=== PATIENT | female | born 1960 | race Caucasian/White ===

== ENCOUNTER 2017-01-29 18:45 | Inpatient (IN) | payer BC ==
[~2017-01-29] VITALS: Ht 162.6 cm; Wt 59.0 kg
[~2017-01-29 18:45] MED LIST: ALBU1AER9 INH; BACL10TA PO; CLB/200 PO; CYM60 PO; DSY/150 PO; IMT100 PO; LAMO200T38 PO; LMC25 PO; MGRIN; PRVC/20 PO; SYN75 PO
[2017-01-29 20:25] VITALS: BP 127/85; PULSE 82; TEMP 37.3; Ht 162.6 cm; Wt 59.0 kg
[2017-01-29] MEDS ORDERED: NURSING VERBAL MED ORDER ONE (21:00)
[2017-01-29] MEDS ORDERED: MoRPHine SULFATE 2 MG/ML CARP ONE (21:06)
[2017-01-29] MEDS ORDERED: TRAZODONE HCL 100 MG TAB PO ONE (21:20)
[2017-01-29] MEDS ORDERED: ALBUTEROL HFA 8 GM INHALER INH PRN (21:30)
[2017-01-29] MEDS ORDERED: LACTATED RINGER'S 1000ML 1,000 ML IV SCH (21:30)
[2017-01-29] MEDS ORDERED: PNEUMOCOCCAL ADMINISTRATION CHARGE ONE (21:45)
[2017-01-29] MEDS ORDERED: PNEUMOCOCCAL POLYSACCHARIDES 25 MCG/0.5 ML VIAL/SYR IM. ONE (21:45)
[2017-01-29] MEDS ORDERED: MoRPHine SULFATE 2 MG/ML CARP IV PRN (21:45)
[2017-01-29] MEDS ORDERED: ONDANSETRON INJ 2 MG/ML 2 ML VIAL IV PRN (21:45)
[2017-01-29] MEDS ORDERED: SODIUM CHLORIDE 0.9% 1000ML 1,000 ML IV SCH (21:45)
[2017-01-29] MEDS ORDERED: OXYCODONE/ACETAMINOPHEN 5-325 TAB PO PRN (21:45)
[2017-01-29] MEDS ORDERED: INFLUENZA ADMINISTRATION CHARGE ONE (22:00)
[2017-01-29] MEDS ORDERED: INFLUENZA VIRUS QUAD VACCINE 0.5 ML SYR IM. ONE (22:00)
[2017-01-29] MEDS: SODIUM CHLORIDE 0.9% 1000ML 1,000 ML IV SCH (22:16)
[2017-01-29] MEDS: CEFTRIAXONE SOD INJ 1 GM in DEXTROSE 5% ADD-VANTAGE 50ML 50 ML IV SCH (22:17)
--- NOTE | 2017-01-29 22:23 | Medical Consult ---
Consultation Date of Consultation: Jan 29, 2017. Attending Physician: Jose Pan D.O. Reason for Consultation: Medical Management History of Present Illness Mrs Rosario is a 56 year old female who presents as a direct admission under Dr Pan for left hand cellulitis following a cat bite 3 days previously. She initially went to urgent care and had an XR - original interpretation of a fracture but then later told it was not fractured. She was given TDaP. She was prescribed doxycycline and took her first dose on Tuesday morning. However the swelling, pain and erythema became worse throughout the day and she presented to [facility] in [place]. No labs or imaging was taken. Her case was discussed with Dr Pan who accepted the patient for transfer. Past Medical/Surgical History Medical Problems: (1) Depression Status: Chronic (2) Epilepsy Unspec W/O Mention Intractable Epilepsy Status: Chronic (3) Hypothyroidism Nos Status: Chronic (4) Migraine Status: Chronic (5) Posttraumatic Stress Disorder Status: Chronic (6) Urolithiasis Status: Chronic Social History Smoking Status: Never Smoker Drug Use: none Marital Status: Housing Status: lives with significant other Occupation Status: employed Allergies Coded Allergies: Penicillins (Verified Allergy, Mild, 06/14/11) Carbamazepine (Unverified Allergy, Unknown, rash, 01/21/17) Gabapentin (Verified Allergy, Unknown, UNKNOWN, 06/14/11) Oxcarbazepine (Unverified Adverse Reaction, Unknown, cognitive side effects, 01/21/17) Home Medications Reported Home Medications Medications Dose Route/Sig Max Daily Dose Days Date Category Dose Instructions CeleBREX (Celecoxib) 200 Mg Cap 1 Cap PO DAILY 01/21/17 Reported Migranal (Dihydroergotamine Mesylate) 4 Mg/Ml Murray PRN 01/21/17 Reported Proair Hfa (Albuterol Sulfate) 108 Mcg/ Aer 2 Puffs INH Q4H PRN 08/16/14 Reported Synthroid (Levothyroxine Sodium) 75 Mcg Tab 75 Mcg PO DAILY 08/16/14 Reported Pravastatin Sodium (Pravastatin Sod) 20 Mg Tab 20 Mg PO HS 08/16/14 Reported Lioresal (Baclofen) 10 Mg Tab 20 Mg PO HS 08/16/14 Reported Trazodone HCl 150 Mg Tab 150 Mg PO HS 08/16/14 Reported Lamictal (Lamotrigine) 200 Mg Tab 200 Mg PO BID 08/16/14 Reported TAKE TWO 200 MG TABLETS ALONG WITH ONE 25 MG TABLET TO EQUAL 250 MG DOSE TWICE DAILY. Lamotrigine 25 Mg Tab 50 Mg PO BID 08/16/14 Reported TAKE TWO 25 MG TABLETS ALONG WITH ONE 200 MG TABLET TO EQUAL 250 MG DOSE TWICE DAILY. Duloxetine HCl 60 Mg Cap 120 Mg PO DAILY 08/16/14 Reported Imitrex (Sumatriptan Succinate) 100 Mg Tab 100 Mg PO UD PRN 08/16/14 Reported TAKE ONE TABLET AT ONSET OF MIGRAINE HEADACHE, MAY REPEAT IN 2 HOURS IF NEEDED. Current Inpatient Medications Current Inpatient Medications Medications (Trade) Dose Ordered Sig/Florin Route Start Time Stop Time Status Last Admin Dose Admin Miscellaneous Information (Nursing Verbal Med Order) 1 ea ONE ONCE N/A 01/29/17 21:00 01/29/17 21:01 UNV Pneumococcal Polysaccharide Vaccine (Pneumovax-23 Inj) 25 mcg ONCE ONCE IM. 01/29/17 21:45 01/29/17 21:46 UNV Review of Systems All other systems reviewed and otherwise negative Constitutional: No fever, No chills Respiratory: No shortness of breath Cardiovascular: No chest pain Abdomen: No pain, No nausea, No vomiting, No diarrhea, No constipation Musculoskeletal: + joint pain Physical Exam Date Time Temp Pulse Resp B/P (MAP) Pulse Ox O2 Delivery O2 Flow Rate FiO2 01/29/17 20:25 37.3 82 16 127/85 Room Air General Appearance: WD/WN, + mild distress (from pain in her hand) Head: normocephalic, atraumatic Eyes: normal inspection, EOMI Neck: supple, no JVD, trachea midline Respiratory/Chest: chest non-tender, lungs clear, normal breath sounds, no respiratory distress, no accessory muscle use Cardiovascular: regular rate, rhythm, no murmur, normal peripheral pulses Abdomen/GI: normal bowel sounds, non tender, soft Extremities/Musculoskelatal: no calf tenderness, normal capillary refill, no pedal edema, + pertinent finding (thumb in fixed flexion with small (<5 degrees ) flexion and extension MCPJ and IPJ possible but limited from pain and swelling ) 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 - under orthopedics, will defer imaging to Dr Pan - CBC, BMP, Blood cultures - Start ceftriaxone and metronidazole IV as patient allergic to penicillin therefore unable to give Unasyn but tolerated Ancef given @ [facility] - Pain control - acetaminophen 650mg Q4HWA, oxycodone 5mg Q4H PRN and morphine 2mg Q2H PRN - NPO after midnight with IVF PTSD/Depression - Continue lamictal, cymbalta, trazodone VTE Prophylaxis - defer to primary ortho team Code Resident Physician Supervision Note: Pt seen/evaluated independently. I discussed the case with the resident and agree with the findings and plan as documented in the note. Any exceptions or clarifications are listed here: 56 y/o F Hx Depression - suffered a cat bite from her own pet at the interphalangeal joint of the L thumb - developed marked pain, swelling, decreased mobility. Pt admitted by orthopedics - we are asked to consult for medical management AAO x 3 S1,2 R CTAB NT, ND No CCE Swelling, erythema and pain of L thumb extending around base of thumb P: Placed on Ceftriaxone and Flagyl as she is Russell allergic Continue depression meds as prescribed Pt ids pending ortho evaluation at time of admission - case discussed with ortho Documented By: Angus Isaacs - Full Disposition - on med/durg Additional Copies To Jaciel Robins M.D.
[2017-01-29 22:37] LABS: BASO % 0.1 %; BASO ABS # 0.01 K/uL (0-0.2); COMPLETE YES; EOS % 1.3 %; HEMATOCRIT 39.7 % (37-47); IG% 0.1 %; LYMPH % 16.8 %; LYMPH ABS # 1.14 K/uL (1.2-3.4); MEAN CELL VOLUME 98.5 fL (80-100); MEAN CORPUSCULAR HGB CONC 31.5 g/dl (32-36); MEAN PLATELET VOLUME 9.8 fL (7.4-10.4); MONO % 9.4 %; NEUT % 72.3 %; PLATELET COUNT 182 K/uL (130-400); RED BLOOD COUNT 4.03 M/uL (4.2-5.4); WHITE BLOOD COUNT 6.78 K/uL (4.8-10.8)
[2017-01-29 22:52] VITALS: BP 110/71; PULSE 77; TEMP 36.8; O2SAT 96
[2017-01-29 22:55] LABS: BUN/CREATININE RATIO 15.6 (10-20); CREATININE 0.61 mg/dl (0.60-1.20); POTASSIUM 3.9 mmol/L (3.5-5.1)
[2017-01-29] MEDS: METRONIDAZOLE / NSS 500 MG in PREMIXED NSS 100 ML IV SCH (23:07)
[2017-01-30] VITALS (9 sets, daily range): BP systolic 92–117; BP diastolic 54–73; PULSE 73–93; TEMP 36.5–36.9; O2SAT 92–99
[2017-01-30] MEDS: MoRPHine SULFATE 2 MG/ML CARP IV PRN ×3 (00:18→15:29)
[2017-01-30] MEDS ORDERED: DAPTOMYCIN CONSULT ACTIVE PRN ×2 (01:45)
[2017-01-30] MEDS: DAPTOmycin IV 250 MG in SODIUM CHLORIDE 0.9% 50ML 50 ML IV SCH (02:14)
[2017-01-30] MEDS: DULOXETINE HCL 60 MG CAP PO SCH (05:55)
[2017-01-30] MEDS: LEVOTHYROXINE 75 MCG TAB PO SCH (05:55)
[2017-01-30] MEDS: METRONIDAZOLE / NSS 500 MG in PREMIXED NSS 100 ML IV SCH ×3 (06:05→21:39)
[2017-01-30] MEDS: ACETAMINOPHEN 325 MG TAB PO SCH ×4 (07:52→20:25)
[2017-01-30] MEDS: SODIUM CHLORIDE 0.9% 1000ML 1,000 ML IV SCH ×2 (07:54→20:22)
[2017-01-30] MEDS ORDERED: DOCUSATE SODIUM 100 MG CAP PO SCH (09:00)
[2017-01-30] MEDS ORDERED: PANTOprazole SOD 40 MG TAB PO SCH (09:00)
[2017-01-30] MEDS: DOCUSATE SODIUM 100 MG CAP PO SCH ×2 (09:09→20:25)
[2017-01-30] MEDS: PANTOprazole SOD 40 MG TAB PO SCH (09:10)
--- NOTE | 2017-01-30 09:41 | Progress Note ---
Progress Note Date of Service Jan 30, 2017. Progress Note ID Consult Dictated #[id number] A/P: 1. Cat bite cellulitis -Continue abx -For I&D later today, please send OR cultures -will follow, thank you
--- NOTE | 2017-01-30 10:10 | Hospitalist Progress Note ---
Hospitalist Progress Note Date of Service Jan 30, 2017. Subjective Pt evaluation today including: conversation w/ patient Pt still with pain and swelling in left thumb, awaiting OR I&D today. Denies fevers/chills, no CP or SOB. SHe has no h/o cardiac issues. She can easily walk up and down a flight of stairs without any CP or SOB. Has a h/o pseudoseizures associated with her PTSD, takes Lamictal for depression /mood stabilizer All Other Systems: Reviewed and Negative Objective Vital Signs Date Time Temp Pulse Resp B/P (MAP) Pulse Ox O2 Delivery O2 Flow Rate FiO2 01/30/17 07:45 95 Room Air 01/30/17 07:06 36.8 78 16 92/60 (71) 95 Room Air 01/30/17 00:10 Room Air 01/29/17 22:52 36.8 77 17 110/71 (84) 96 Room Air 01/29/17 22:46 Room Air 01/29/17 20:25 37.3 82 16 127/85 Room Air Physical Exam General Appearance: WD/WN, no apparent distress Eyes: normal inspection, PERRL, sclerae normal ENT: hearing grossly normal, pharynx normal Neck: no adenopathy, no carotid bruits, trachea midline Respiratory/Chest: lungs clear, normal breath sounds, no respiratory distress, no accessory muscle use Cardiovascular: regular rate, rhythm, no edema, no gallop, no JVD, no murmur Abdomen: normal bowel sounds, non tender, soft Extremities: no pedal edema, no calf tenderness, + swelling (left thumb with significant swelling from MP joint on distally, mild erythema, multiple puncture wounds visible, area over IP joint with fluctuence and scab, exquisitely +TTP over entire thumb, not able to actively flex or extend joint sin thumb at all and passive flexion causes severe pain) Neurologic/Psychiatric: alert, normal mood/affect, oriented x 3 Skin: warm/dry Laboratory Results Last 24 Hours Test 01/29/17 22:21 White Blood Count 6.78 K/uL Red Blood Count 4.03 M/uL Hemoglobin 12.5 g/dL Hematocrit 39.7 % Mean Corpuscular Volume 98.5 fL Mean Corpuscular Hemoglobin 31.0 pg Mean Corpuscular Hemoglobin Concent 31.5 g/dl Platelet Count 182 K/uL Mean Platelet Volume 9.8 fL Neutrophils (%) (Auto) 72.3 % Lymphocytes (%) (Auto) 16.8 % Monocytes (%) (Auto) 9.4 % Eosinophils (%) (Auto) 1.3 % Basophils (%) (Auto) 0.1 % Neutrophils # (Auto) 4.89 K/uL Lymphocytes # (Auto) 1.14 K/uL Monocytes # (Auto) 0.64 K/uL Eosinophils # (Auto) 0.09 K/uL Basophils # (Auto) 0.01 K/uL RDW Standard Deviation 47.3 fL RDW Coefficient of Variation 12.9 % Immature Granulocyte % (Auto) 0.1 % Immature Granulocyte # (Auto) 0.01 K/uL Sodium Level 138 mmol/L Potassium Level 3.9 mmol/L Chloride Level 103 mmol/L Carbon Dioxide Level 28 mmol/L Anion Gap 7.0 mmol/L Blood Urea Nitrogen 10 mg/dl Creatinine 0.61 mg/dl Est Creatinine Clear Calc Drug Dose 87.9 ml/min Estimated GFR () 116.6 Estimated GFR (Non- 100.6 BUN/Creatinine Ratio 15.6 Random Glucose 115 mg/dl Calcium Level 9.0 mg/dl Assessment and Plan This pt is a 56 year old with female with a h/o depression, PTSD, pseudoseizures , migraines, nephrolithiasis, dyslipidemia, OA, and a nonspecific demyelinating disease, who presents with failed outpatient treatment of a left thumb cat bite cellulitis. She has no evidence of sepsis. Cat bite with left thumb cellulitis and most likely suppurative tenosynovitis - Orthopedics managing and will take her to OR for I&D today-is at average CV perioperative risk for this intermediate risk surgery and should proceed, continue home statin -will defer any necessary imaging to Ortho -check wound cultures intraoperatively and follow -follow Blood cultures but with no evidence of sepsis I doubt these will prove positive -PCN allergic so placed on and will continue ceftriaxone, Dapto, and metronidazole IV (tolerated Ancef given @ [facility] prior to transfer) -ID following - Pain control - acetaminophen 650mg Q4HWA, oxycodone 5mg Q4H PRN and morphine 2mg Q2H PRN PTSD/Depression-stable - Continue lamictal, cymbalta, trazodone H/o Pseudoseizures, nonspecific demyelinating disease, migraines-stable, no pseudoseizures in 5 years but triggered by exacerbations of her PTSD -Imitrex prn -follows with Neuro as outpt OA-NSAIDs on hold Dyslipidemia-continue statin VTE Prophylaxis SCDs Full Code Dispo-to home today or tomorrow after I&D
--- NOTE | 2017-01-30 10:22 | HISTORY & PHYSICAL EXAMINATION ---
DATE OF ADMISSION: 01/29/2017 CHIEF COMPLAINT: Left hand cat bite. HISTORY OF PRESENT ILLNESS: This is a 56-year-old female, who apparently got bitten by her spooked cat approximately 3 days ago. She originally presented to an urgent care center where she was determined to have no fractures. She was put on doxycycline. Over the course of the next 2-3 days, her symptoms worsened in the form of pain and swelling. She reported to an Emergency Department in [place]. She was transferred to [facility] for admissions for IV antibiotics and probable irrigation and debridement of her left hand cat bite. PAST MEDICAL HISTORY: Significant for depression, posttraumatic stress disorder, hypercholesterolemia, osteoarthritis, seizure disorder and hypothyroidism. REVIEW OF SYSTEMS: The patient complains of left hand pain, swelling and decreased motion. Otherwise, denies any shortness of breath, chest pain, nausea, vomiting or any other joint complaints. FAMILY HISTORY: Noncontributory. SOCIAL HISTORY: The patient is a nonsmoker. She is an occasional drinker. The patient is and lives at home with her . 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 SURGICAL HISTORY: Significant for a colonoscopy recently. She has also had a cholecystectomy, bilateral rotator cuff surgeries, bilateral carpal tunnel surgeries and TMJ jaw surgery. MEDICATIONS: Include; Celebrex 200 mg daily, Migranal medicine 4 mg as needed, ProAir 108 mcg aerosol 2 puffs every 4 hours as needed, Synthroid 75 mg daily, pravastatin 20 mg at bedtime, baclofen 20 mg at bedtime, trazodone 150 mg at bedtime, Lamictal 200 mg b.i.d., lamotrigine 25 mg she takes 50 mg b.i.d., duloxetine 120 mg daily and Imitrex 100 mg as needed. ALLERGIES: PENICILLINS, CARBAMAZEPINE, GABAPENTIN AND OXCARBAZEPINE. PHYSICAL EXAMINATION: CURRENT VITAL SIGNS: Temperature 36.8, pulse 78, respiratory rate 16, blood pressure 92/60 and pulse ox 95 on room air. GENERAL: This is a well-developed, well-nourished 56-year-old female in no acute distress. She is alert and oriented x3 and pleasant. HEENT: Normocephalic and atraumatic. Extraocular motions are intact and pupils are equal and reactive to light. HEART: Regular rate and rhythm, no murmurs appreciated. LUNGS: Clear. ABDOMEN: Soft and nontender, bowel sounds are present. EXTREMITIES: Left upper extremity: Her thumb and thenar eminence are with obvious swelling and erythema. She has had 2 puncture wounds in thumb. There is currently no bleeding or drainage from the area. She does have a flexion contracture of the thumb due to pain and swelling. Otherwise neurologically and neurovascularly she is intact in her left upper extremity. There does not seem to be any pathology with her wrist or elbow. DIAGNOSES: 1. Left thumb cat bite with probable infection. 2. Depression, posttraumatic stress disorder, hypercholesterolemia, osteoarthritis, epilepsy and hypothyroidism. PLAN: The patient was admitted under Dr. Pan's service. She is currently on IV daptomycin and ceftriaxone antibiotics. She will be prepped for an irrigation and debridement of her left thumb secondary to the cat bite; we will do that today. She is currently n.p.o. We will follow her throughout her surgical and postoperative period. DAYNE
--- NOTE | 2017-01-30 11:50 | History & Physical Bridge Note ---
H&P Re-Evaluation Bridge Note: I have examined the patient, reviewed the History & Physical and in the interval since the performance of the History & Physical I have noted the following changes of clinical significance: Fusiform swelling left thumb. + Kanavel's signs. To OR for I and D left thumb.
[2017-01-30] MEDS ORDERED: PROPOFOL IV EMULSION 10 MG/ML 20 ML VIAL IV ONE ×2 (14:38→17:18)
[2017-01-30] MEDS ORDERED: EpHEDrine SULFATE INJ 50 MG/ML AMP ONE (14:38)
[2017-01-30] MEDS ORDERED: LIDOCAINE HCL 2% 2 ML VIAL (20MG/ML) ONE (14:38)
[2017-01-30] MEDS ORDERED: BUPIVACAINE 0.5 % 5 MG/1 ML MPF 30ML VIAL ONE (16:38)
[2017-01-30] MEDS ORDERED: BACITRACIN 50000 UNIT VIAL ONE (16:38)
[2017-01-30] MEDS ORDERED: FENTANYL CITRATE INJ 50 MCG/1 ML 2 ML VIAL ONE (17:18)
[2017-01-30] MEDS ORDERED: MIDAZOLAM HCL 1 MG/ML 2ML VIAL ONE (17:18)
[2017-01-30] MEDS ORDERED: PROMETHAZINE HCL INJ 12.5 MG in SODIUM CHLORIDE 0.9% 50ML 50 ML IV PRN (17:30)
[2017-01-30] MEDS ORDERED: FENTANYL CITRATE INJ 50 MCG/1 ML 2 ML VIAL IV PRN (17:30)
[2017-01-30] MEDS ORDERED: HYDROmorphone INJ 0.5 MG/0.5 ML SYR IV PRN (17:30)
[2017-01-30] MEDS ORDERED: PHENYLEPHRINE 100MCG/ML 5ML SYR IV PRN (17:30)
[2017-01-30] MEDS ORDERED: ONDANSETRON INJ 2 MG/ML 2 ML VIAL IV PRN (17:30)
[2017-01-30] MEDS ORDERED: EpHEDrine SULFATE INJ 50 MG/ML AMP IV PRN (17:30)
[2017-01-30] MEDS ORDERED: ATROPINE SULFATE 0.1 MG/ML 5ML SYR IV PRN (17:30)
[2017-01-30] MEDS ORDERED: DEXAMETHASONE SOD INJ 4 MG/ML VIAL ONE (17:39)
[2017-01-30] MEDS ORDERED: ONDANSETRON INJ 2 MG/ML 2 ML VIAL ONE (17:40)
[2017-01-30] MEDS ORDERED: METOCLOPRAMIDE HCL INJ 5 MG/ML 2 ML VIAL ONE ×2 (17:42→18:28)
--- NOTE | 2017-01-30 18:00 | INFECT. DISEASE CONSULTATION ---
DATE OF CONSULTATION: 01/30/2017 REQUESTING PHYSICIAN: Dr. Pan. HISTORY OF PRESENT ILLNESS: This is a 56-year-old female who was admitted after she was bitten by her cat. She was seen in an outpatient facility and she was placed on oral doxycycline as she has a PENICILLIN ALLERGY, but continued to have erythema and pain. She was subsequently admitted from the orthopedic office. She is on schedule for an IV later today. She was placed on empiric antibiotics consisting of daptomycin and Rocephin. Infectious diseases was consulted for daptomycin approval. She has been afebrile. Her white blood cell count is 6.7. She continues to complain of pain in the left upper extremity, but states it has improved. There was a line drawn around the area and the erythema has regressed from this. She states this was around cat bite and that she did receive a tetanus booster in the office. All remaining review of systems are reviewed and unremarkable. PAST MEDICAL HISTORY: Significant for depression, epilepsy, hypothyroidism, migraine headaches, PTSD and kidney stones. SOCIAL HISTORY: Negative for tobacco use, alcohol use or drug use. ALLERGIES: SHE HAS ALLERGIES TO PENICILLIN, GABAPENTIN AND OXCARBAZEPINE. PHYSICAL EXAMINATION: VITAL SIGNS: She is afebrile, pulse 78, respiratory rate 16, blood pressure 92/60, oxygen saturation is 95% on room air. GENERAL: She is awake, alert and oriented x3. She is in no acute distress. HEENT: Mucous membranes are moist. Extraocular muscles are intact. HEART: Regular. LUNGS: Clear bilaterally. ABDOMEN: Soft, nontender, nondistended. EXTREMITIES: There is no lower extremity edema. Examination of the left hand does reveal superficial wound over the aspect of her thumb. She does have minimal surrounding edema and erythema. She does have decreased range of motion secondary to pain. The erythema has diminished from a line drawn in the Emergency Room. There is no purulent drainage. LABORATORY STUDIES: CBC reveals a white blood cell count of 6.7, hemoglobin 12.5, and platelets are 182. Chemistry panel: Sodium 138, potassium 3.9, chloride 103, bicarb 28, BUN 10, creatinine 0.6, and glucose is 115. Blood cultures are pending. There is no imaging to review. ASSESSMENT AND PLAN: Cat bite cellulitis. She can remain on her antibiotics pending blood and wound culture. She does have plans for debridement later today. An intraoperative culture should be obtained. Her antibiotics will be adjusted based on these results. Thank you for this consultation. DAYNE
--- NOTE | 2017-01-30 18:55 | [facility] Post Operative Brief Note ---
Immediate Operative Summary Operative Date Jan 30, 2017. Pre-Operative Diagnosis 1. Abscess of Dorsal Left Thumb 2. Supparative Flexor Tenosynovitis thumb flexor tendon Post-Operative Diagnosis 1. Abscess of Dorsal Left Thumb 2. Supparative Flexor Tenosynovitis thumb flexor tendon Procedure(s) Performed 1. Incision and Drainage Dorsal Left Thumb Abscess 2. Irrigation and Debridment Left Thumb Supparative Flexor Tenosynovitis 3. Arthrotomy Interphalangeal Joint Thumb with Irrigation and Debridement Surgeon Dr Jose Pan Imaging Manager Surgeon(s) None Estimated Blood Loss 2cc Findings See Dict Specimens As Per Surgeon Microbiology 1. Left Dorsal Thumb Abcess Drains Iodoform gauze 1/4" x 4 Left thumb, IP joint and flexor tendon sheath thumb Anesthesia GLMA with partial wrist block Complication(s) None Disposition Recovery Room / PACU
--- NOTE | 2017-01-30 19:01 | Anesthesiology Progress Note ---
Anesthesia Post Op Note Date & Time Jan 30, 2017 at 19:00 Vital Signs Pain Intensity: 7.0 Vital Signs Past 12 Hours Date Time Temp Pulse Resp B/P (MAP) Pulse Ox O2 Delivery O2 Flow Rate FiO2 01/30/17 15:30 Room Air 01/30/17 15:00 36.9 73 20 105/69 (81) 95 Room Air 01/30/17 07:45 95 Room Air 01/30/17 07:06 36.8 78 16 92/60 (71) 95 Room Air Notes Mental Status: alert / awake / arousable, participated in evaluation Pt Amnestic to Procedure: Yes Nausea / Vomiting: adequately controlled Pain: adequately controlled Airway Patency, RR, SpO2: stable & adequate BP & HR: stable & adequate Hydration State: stable & adequate Anesthetic Complications: no major complications apparent Awake, doing well. Pain controlled. No n/v.
[2017-01-30] MEDS: PRAVASTATIN SOD 20 MG TAB PO SCH (20:24)
[2017-01-30] MEDS: BACLOFEN 10 MG TAB PO SCH (20:25)
[2017-01-30] MEDS: TRAZODONE HCL 100 MG TAB PO SCH (21:38)
[2017-01-30] MEDS: CEFTRIAXONE SOD INJ 1 GM in DEXTROSE 5% ADD-VANTAGE 50ML 50 ML IV SCH (21:40)
--- NOTE | 2017-01-31 01:40 | OPERATIVE REPORT ---
DATE OF OPERATION: 01/30/2017 PREOERATIVE DIAGNOSES: 1. Left thumb dorsal abscess. 2. Suppurative flexor tenosynovitis of the flexor tendon of the thumb. POSTOPERATIVE DIAGNOSES: 1. Left thumb dorsal abscess. 2. Suppurative flexor tenosynovitis of the thumb flexor tendon. 3. Septic arthritis, interphalangeal joint of the thumb. PROCEDURES: 1. Left thumb incision and drainage of dorsal abscess. 2. Arthrotomy of the interphalangeal joint of the thumb with irrigation and debridement. 3. Irrigation and debridement of suppurative flexor tenosynovitis of the thumb flexor. SURGEON: Dr. Pan. DANCE PROFESSOR: None. ANESTHESIA: General LMA with partial wrist block. SPECIMENS: Aerobic, anaerobic, Gram stain. DRAINS: Iodoform gauze x4. Two in the flexor tendon sheath and 2 in the dorsal aspect of the thumb, one in the abscess space and second in the interphalangeal joint. COMPLICATIONS: None. BLOOD LOSS: 2 mL. PERTINENT HISTORY: This is a 56-year-old female who was bitten by her cat approximately 3 days ago. She attempted outpatient management and failed with worsening fusiform swelling of her left thumb with difficulty with flexion, extension, pain upon passive extension and tenderness over the flexor tendon sheath as well as an obvious dorsal abscess adjacent to the interphalangeal joint and bite oc on the dorsal aspect of the thumb. The patient was admitted to [facility] after transfer from another center and was then scheduled for surgery as indicated. All potential risks, benefits, complications, alternatives, rehab, potential for incomplete relief of symptoms, need for further surgery, DVT, PE, , persistent pain, swelling, scarring, weakness, neurovascular injury, wound complications, loss of function and persistent stiffness of the thumb were discussed with the patient. The patient decided to proceed with the procedure as indicated. PROCEDURE IN DETAIL: The patient was taken to the operative suite, placed supine on the operating room table. After review of consent and identification of proper operative site, the patient was anesthetized, LMA was placed. Tourniquet was placed high on the left upper extremity over cast padding. Left upper extremity was then sterilely prepped and draped in usual fashion, elevated and tourniquet inflated to 250 mmHg. There was no exsanguination performed due to the nature of the infection and associated cellulitis. The 15 blade was used to make an incision on the dorsal aspect of the thumb, at the radial aspect of the thumb. This incision was then made adjacent to the puncture oc dorsally. This incision was then deepened through the subcutaneous tissue to the level of the abscess. The abscess was identified with obvious purulent material. Aerobic, anaerobic and Gram stain specimens were obtained and passed off the laboratory. Next, the abscess pocket was then evacuated and tissue was carefully debrided with a small rongeur. Next, another incision was made on the ulnar border of the thumb adjacent to the interphalangeal joint. Secondary abscess fluid collection was noted. This was incised and then drained. Next, a 60 mL syringe was then used to irrigate the dorsal abscess until clear, both on the medial and lateral aspects of the thumb. Next, attention was then directed toward the flexor surface of the thumb at the distal flexion crease. A 15 blade transverse incision was made, following careful dissection with tenotomy scissors down to flexor tendon sheath which was then carefully incised with 15 blade scalpel. This exposed the flexor tendon. There was noted to be serous and also lightly purulent appearing fluid in the sheath. Next, a secondary incision was made just proximal to the A1 ean in a transverse fashion with 15 blade scalpel at the base of the thumb. Next, careful dissection was performed down to the subcutaneous tissue, subcutaneous fat and care was taken to identify, retract and protect the neurovascular bundles both medially and laterally. Next, the A1 ean was then cut with a tenotomy scissor and the same thin serous, slightly purulent appearing fluid was noted in the flexor tendon sheath. Next, a 16 gauge Angiocath was then placed in the flexor tendon sheath and this was then copiously irrigated with bacitracin and sterile normal saline, approximately 600-700 mL until clear. Next, the irrigation was once again performed in the dorsum of the thumb. Then a 15 blade scalpel was used to make an arthrotomy incision in the interphalangeal joint adjacent to the cat bite puncture oc which clearly did puncture the interphalangeal joint capsule. Next, the interphalangeal joint was then copiously irrigated with bacitracin and sterile normal saline until clear. Next 1/4 inch iodoform gauze packing was placed into the dorsal abscess pocket and then another into the interphalangeal joint, a third into the distal portion of the flexor tendon sheath and a fourth iodoform gauze drain placed into the proximal portion of the flexor tendon sheath. Next, top gloves and top sheet were changed, followed by careful loose closure of the incisions with interrupted 4-0 nylon sutures. A partial wrist block was then performed with 0.5% Marcaine plain, approximately 10 mL into the carpal canal and approximately 10 mL in a dorsal wheel placed from the volar aspect of the wrist over the radius to the dorsal radial aspect of the wrist, thus performing a partial wrist block. Next, a sterile compressive hand dressing was applied overwrapped with a 2-inch Alexandr wrap. The tourniquet was released, the patient was awakened and taken to recovery in stable condition. I attest to the content of the Intraoperative Record and any orders documented therein. Any exception s are noted below.
[2017-01-31 03:32] VITALS: BP 107/69; PULSE 82; TEMP 36.6; O2SAT 97
[2017-01-31] MEDS: OXYCODONE HCL IR 5 MG TAB (IMMEDIATE RELEASE) PO PRN ×5 (03:39→23:09)
[2017-01-31] MEDS: SODIUM CHLORIDE 0.9% 1000ML 1,000 ML IV SCH ×3 (04:14→23:10)
[2017-01-31] MEDS: METRONIDAZOLE / NSS 500 MG in PREMIXED NSS 100 ML IV SCH ×3 (05:25→22:19)
[2017-01-31] MEDS: LEVOTHYROXINE 75 MCG TAB PO SCH (05:25)
[2017-01-31] MEDS: DAPTOmycin IV 250 MG in SODIUM CHLORIDE 0.9% 50ML 50 ML IV SCH (06:38)
[2017-01-31 07:14] VITALS: BP 107/61; PULSE 69; TEMP 36.7; O2SAT 97
[2017-01-31 07:15] LABS: CREATININE 0.49 mg/dl (0.60-1.20)
[2017-01-31 07:30] VITALS: O2SAT 97
[2017-01-31] MEDS: ACETAMINOPHEN 325 MG TAB PO SCH ×4 (07:48→20:41)
[2017-01-31] MEDS: DULOXETINE HCL 60 MG CAP PO SCH (09:08)
[2017-01-31] MEDS: DOCUSATE SODIUM 100 MG CAP PO SCH ×2 (09:08→20:42)
[2017-01-31] MEDS: PANTOprazole SOD 40 MG TAB PO SCH (09:08)
[2017-01-31] MEDS: MoRPHine SULFATE 2 MG/ML CARP IV PRN ×4 (10:12→22:21)
--- NOTE | 2017-01-31 10:27 | Progress Note ---
Subjective Date of Service: Jan 31, 2017. Subjective Pt evaluation today including: conversation w/ patient, physical exam, chart review, lab review s/p OR drainage of abscess, flexor tenosynovitis, tolerated well. some pain but controlled. no fevers. cultures pending, blood cultures negative. tolerating abx. no complaints. all remaining ros reviewed and are negative. Problem List Medical Problems: (1) Depression Status: Chronic (2) Epilepsy Unspec W/O Mention Intractable Epilepsy Status: Chronic (3) Hypothyroidism Nos Status: Chronic (4) Migraine Status: Chronic (5) Posttraumatic Stress Disorder Status: Chronic (6) Urolithiasis Status: Chronic Objective Vital Signs Date Time Temp Pulse Resp B/P (MAP) Pulse Ox O2 Delivery O2 Flow Rate FiO2 01/31/17 07:30 97 Room Air 01/31/17 07:14 36.7 69 18 107/61 (76) 97 Room Air 01/31/17 03:32 36.6 82 16 107/69 (82) 97 Room Air 01/30/17 23:36 36.6 80 16 94/54 (67) 92 Room Air 01/30/17 23:30 Room Air 01/30/17 22:40 36.5 82 18 95/57 (70) 92 Room Air 01/30/17 21:41 36.6 90 18 105/63 (77) 95 Room Air 01/30/17 20:34 36.5 93 18 117/70 (86) 95 Room Air 01/30/17 20:15 Room Air 1.0 01/30/17 20:08 36.6 75 18 115/73 (87) 96 Room Air 01/30/17 19:35 99 Room Air 01/30/17 19:35 36.5 73 18 110/68 (82) 99 Room Air 01/30/17 19:20 36.7 74 16 124/72 99 Room Air 01/30/17 19:10 80 16 113/68 97 Room Air 01/30/17 19:00 82 16 112/69 100 Oxymask 10 01/30/17 18:50 87 16 112/72 100 Oxymask 10 01/30/17 18:44 36.6 86 16 106/66 100 Oxymask 10 01/30/17 15:30 Room Air 01/30/17 15:00 36.9 73 20 105/69 (81) 95 Room Air Physical Exam General Appearance: WD/WN, no apparent distress Eyes: normal inspection, EOMI Neck: supple Respiratory/Chest: lungs clear, normal breath sounds, no respiratory distress Cardiovascular: regular rate, rhythm, no edema Abdomen: non tender, soft Extremities: non-tender, normal inspection, no pedal edema Neurologic/Psychiatric: alert, oriented x 3 Skin: normal color, warm/dry, no rash Comments: hand dressing c/d/i, able to move all digits Laboratory Results Item Value Date Time Gram Stain - Final Resulted 01/30/17 1745 Abscess Thumb , Left Blood Culture - Preliminary Resulted 01/29/17 2226 Blood NO GROWTH TO DATE. Blood Culture - Preliminary Resulted 01/29/17 2220 Blood NO GROWTH TO DATE. Last 24 Hours Test 01/31/17 06:34 Creatinine 0.49 mg/dl Est Creatinine Clear Calc Drug Dose 109.5 ml/min Estimated GFR () 125.3 Estimated GFR (Non- 108.2 Assessment and Plan (1) Tenosynovitis of hand Assessment & Plan: follow cultures, continue abx for now.
--- NOTE | 2017-01-31 13:23 | Orthopedic Progress Note ---
Orthopedic Progress Note Date of Service Jan 31, 2017. Subjective Post OP Day: 1 Reports: feeling well, Denies: chest pain, SOB, nausea / vomiting, light headedness Objective calves soft nontender, N/V intact, capillary refill less than 2 sec., dressing C /D/I, A&O x3 STILL WITH NUMBNESS IN THE THUMB BUT SENSATION RETURNING TO OTHER DIGITS.SWELLING MINIMAL. Date Time Temp Pulse Resp B/P (MAP) Pulse Ox O2 Delivery O2 Flow Rate FiO2 01/31/17 07:30 97 Room Air 01/31/17 07:14 36.7 69 18 107/61 (76) 97 Room Air 01/31/17 03:32 36.6 82 16 107/69 (82) 97 Room Air 01/30/17 23:36 36.6 80 16 94/54 (67) 92 Room Air 01/30/17 23:30 Room Air 01/30/17 22:40 36.5 82 18 95/57 (70) 92 Room Air 01/30/17 21:41 36.6 90 18 105/63 (77) 95 Room Air 01/30/17 20:34 36.5 93 18 117/70 (86) 95 Room Air 01/30/17 20:15 Room Air 1.0 01/30/17 20:08 36.6 75 18 115/73 (87) 96 Room Air 01/30/17 19:35 99 Room Air 01/30/17 19:35 36.5 73 18 110/68 (82) 99 Room Air 01/30/17 19:20 36.7 74 16 124/72 99 Room Air 01/30/17 19:10 80 16 113/68 97 Room Air 01/30/17 19:00 82 16 112/69 100 Oxymask 10 01/30/17 18:50 87 16 112/72 100 Oxymask 10 01/30/17 18:44 36.6 86 16 106/66 100 Oxymask 10 01/30/17 15:30 Room Air 01/30/17 15:00 36.9 73 20 105/69 (81) 95 Room Air Additional Notes: GRAM STAIN Final 01/30/17-1922 RESULT MANY POLYS RARE GRAM POSITIVE COCCI RARE GRAM NEGATIVE BACILLI Phoned results to REINIER BRAR on 01/30/17 at 1923 by Rita Granados. Results were verbalized back to JOHN. OR AER/LUDY CULT Preliminary 01/31/17-1247 NO GROWTH TO DATE. Assessment & Plan Assessment: POD#1 SP I&D LEFT THUMB Plan: PAIN MANAGEMENT- JOSE, MORPHINE FOLLOW CULTURE RESULTS- CURRENTLY NGTD BUT GRAM STAIN POSITIVE CONTINUE DAPTOMYCIN PENDING FINAL CULTURE RESULTS.
--- NOTE | 2017-01-31 15:07 | Progress Note ---
Subjective Date of Service: Jan 31, 2017. Subjective Pt evaluation today including: conversation w/ patient, physical exam, chart review, lab review, review of studies, review of inpatient medication list Pt seen and examined States numbness resolving in first three fingers Pain improved at this time No further concerns Problem List Medical Problems: (1) Depression Status: Chronic (2) Epilepsy Unspec W/O Mention Intractable Epilepsy Status: Chronic (3) Hypothyroidism Nos Status: Chronic (4) Migraine Status: Chronic (5) Posttraumatic Stress Disorder Status: Chronic (6) Urolithiasis Status: Chronic Review of Systems Constitutional: No fever, No chills, No sweats, No weight loss Eyes: No worsening of vision, No eye pain, No redness, No discharge Respiratory: No cough, No sputum, No wheezing, No shortness of breath Cardiac: No chest pain, No orthopnea, No PND, No edema Abdomen: No pain, No nausea, No vomiting, No diarrhea Musculoskeletal: No joint pain, No muscle pain, No swelling, No calf pain Female : No dysuria, No urinary frequency, No hematuria, No incontinence Neurologic: + numbness/tingling (numbness in first three digits noted), No memory loss, No paralysis, No weakness Psychiatric: No depression symptoms, No anhedonism, No anxiety, No insomnia Endo: No fatigue, No excessive thirst Skin: No rash, No itch Objective Vital Signs Date Time Temp Pulse Resp B/P (MAP) Pulse Ox O2 Delivery O2 Flow Rate FiO2 01/31/17 07:30 97 Room Air 01/31/17 07:14 36.7 69 18 107/61 (76) 97 Room Air 01/31/17 03:32 36.6 82 16 107/69 (82) 97 Room Air 01/30/17 23:36 36.6 80 16 94/54 (67) 92 Room Air 01/30/17 23:30 Room Air 01/30/17 22:40 36.5 82 18 95/57 (70) 92 Room Air 01/30/17 21:41 36.6 90 18 105/63 (77) 95 Room Air 01/30/17 20:34 36.5 93 18 117/70 (86) 95 Room Air 01/30/17 20:15 Room Air 1.0 01/30/17 20:08 36.6 75 18 115/73 (87) 96 Room Air 01/30/17 19:35 99 Room Air 01/30/17 19:35 36.5 73 18 110/68 (82) 99 Room Air 01/30/17 19:20 36.7 74 16 124/72 99 Room Air 01/30/17 19:10 80 16 113/68 97 Room Air 01/30/17 19:00 82 16 112/69 100 Oxymask 10 01/30/17 18:50 87 16 112/72 100 Oxymask 10 01/30/17 18:44 36.6 86 16 106/66 100 Oxymask 10 01/30/17 15:30 Room Air Physical Exam General Appearance: WD/WN, no apparent distress Eyes: normal inspection, PERRL, EOMI, sclerae normal Neck: supple, no adenopathy, thyroid normal, no JVD Respiratory/Chest: chest non-tender, lungs clear, normal breath sounds, no accessory muscle use Cardiovascular: regular rate, rhythm, no edema, no gallop, no JVD Abdomen: normal bowel sounds, non tender, soft, no organomegaly Extremities: normal range of motion, non-tender, normal inspection, no pedal edema Neurologic/Psychiatric: no motor/sensory deficits, alert, normal mood/affect, oriented x 3 Skin: normal color, warm/dry, no rash Lymphatic: no adenopathy Laboratory Results Last 24 Hours Test 01/31/17 06:34 Creatinine 0.49 mg/dl Est Creatinine Clear Calc Drug Dose 109.5 ml/min Estimated GFR () 125.3 Estimated GFR (Non- 108.2 Assessment and Plan This pt is a 56 year old with female with a h/o depression, PTSD, pseudoseizures , migraines, nephrolithiasis, dyslipidemia, OA, and a nonspecific demyelinating disease, who presents with failed outpatient treatment of a left thumb cat bite cellulitis. She has no evidence of sepsis. Cat bite with left thumb cellulitis and most likely suppurative tenosynovitis POD # 1 s/p I&D -Orthopedics managing I&D completed 01/30, await c&s -Follow Blood cultures but with no evidence of sepsis I doubt these will prove positive -Continue ceftriaxone, Dapto, and metronidazole IV (tolerated Ancef given @ [facility] prior to transfer) -ID following -Pain control - acetaminophen 650mg Q4HWA, oxycodone 5mg Q4H PRN and morphine 2mg Q2H PRN PTSD/Depression-stable -Continue lamictal, cymbalta, trazodone H/o Pseudoseizures, nonspecific demyelinating disease, migraines-stable, no pseudoseizures in 5 years but triggered by exacerbations of her PTSD -Imitrex prn -follows with Neuro as outpt OA-NSAIDs on hold Dyslipidemia-continue statin VTE Prophylaxis SCDs Full Code
[2017-01-31 15:27] VITALS: BP 129/76; PULSE 81; TEMP 37; O2SAT 95
[2017-01-31] MEDS: PRAVASTATIN SOD 20 MG TAB PO SCH (20:43)
[2017-01-31] MEDS: BACLOFEN 10 MG TAB PO SCH (20:44)
[2017-01-31] MEDS: TRAZODONE HCL 100 MG TAB PO SCH (20:44)
[2017-01-31] MEDS: CEFTRIAXONE SOD INJ 1 GM in DEXTROSE 5% ADD-VANTAGE 50ML 50 ML IV SCH (21:25)
[2017-01-31 23:07] VITALS: BP 123/78; PULSE 70; TEMP 36.9; O2SAT 95
[2017-02-01] MEDS: MoRPHine SULFATE 2 MG/ML CARP IV PRN ×7 (00:16→21:11)
[2017-02-01] MEDS: LEVOTHYROXINE 75 MCG TAB PO SCH (05:28)
[2017-02-01] MEDS: DAPTOmycin IV 250 MG in SODIUM CHLORIDE 0.9% 50ML 50 ML IV SCH (05:28)
[2017-02-01] MEDS: METRONIDAZOLE / NSS 500 MG in PREMIXED NSS 100 ML IV SCH ×3 (06:09→21:43)
[2017-02-01 07:09] VITALS: BP 120/75; PULSE 72; TEMP 37.1; O2SAT 95
[2017-02-01] MEDS: OXYCODONE HCL IR 5 MG TAB (IMMEDIATE RELEASE) PO PRN ×3 (07:24→19:20)
[2017-02-01] MEDS: ACETAMINOPHEN 325 MG TAB PO SCH ×4 (07:24→20:09)
[2017-02-01] MEDS: PANTOprazole SOD 40 MG TAB PO SCH (09:07)
[2017-02-01] MEDS: DULOXETINE HCL 60 MG CAP PO SCH (09:08)
[2017-02-01] MEDS: DOCUSATE SODIUM 100 MG CAP PO SCH ×2 (09:08→21:15)
[2017-02-01] MEDS: SODIUM CHLORIDE 0.9% 1000ML 1,000 ML IV SCH ×2 (09:53→20:08)
--- NOTE | 2017-02-01 12:39 | Orthopedic Progress Note ---
Orthopedic Progress Note Date of Service Feb 01, 2017. Subjective Post OP Day: 2 Reports: feeling well, Denies: chest pain, SOB, nausea / vomiting, light headedness, calf pain Objective calves soft nontender, N/V intact, capillary refill less than 2 sec., dressing C /D/I, incision C/D/I, A&O x3, CMS intact DRESSING REMOVED, ALL PACKING REMOVED. SHE HAD SCANT PURULENCE FROM THE DORSAL SIDE. MODERATE EDEMA. Date Time Temp Pulse Resp B/P (MAP) Pulse Ox O2 Delivery O2 Flow Rate FiO2 02/01/17 07:10 Room Air 02/01/17 07:09 37.1 72 16 120/75 (90) 95 Room Air 01/31/17 23:15 Room Air 01/31/17 23:07 36.9 70 16 123/78 (93) 95 Room Air 01/31/17 15:27 37.0 81 18 129/76 (93) 95 Room Air 01/31/17 15:15 Room Air Additional Notes: GRAM STAIN Final 01/30/17-1922 RESULT MANY POLYS RARE GRAM POSITIVE COCCI RARE GRAM NEGATIVE BACILLI Phoned results to REINIER BRAR on 01/30/17 at 1923 by Rita Granados. Results were verbalized back to JOHN. OR AER/LUDY CULT Preliminary 02/01/17-103 NO GROWTH TO DATE. Assessment & Plan Assessment: POD#2 SP I&D LEFT THUMB Plan: PAIN MANAGEMENT- JOSE, MORPHINE FOLLOW CULTURE RESULTS- CURRENTLY NGTD BUT GRAM STAIN POSITIVE CONTINUE DAPTOMYCIN PENDING FINAL CULTURE RESULTS. DRESSING AND PACKING CHANGED TODAY. WILL NEED DAILY DRESSING CHANGES AND WOUND MONITORING.
--- NOTE | 2017-02-01 14:53 | Progress Note ---
Subjective Date of Service: Feb 01, 2017. Subjective Pt evaluation today including: conversation w/ patient, physical exam, chart review, lab review, review of studies, review of inpatient medication list Resting in bed comfortably Noted significant hand pain at times Numbness resolved No fevers or chills Problem List Medical Problems: (1) Depression Status: Chronic (2) Epilepsy Unspec W/O Mention Intractable Epilepsy Status: Chronic (3) Hypothyroidism Nos Status: Chronic (4) Migraine Status: Chronic (5) Posttraumatic Stress Disorder Status: Chronic (6) Urolithiasis Status: Chronic Review of Systems Constitutional: No fever, No chills, No sweats, No weight loss, No weakness Eyes: No worsening of vision, No eye pain, No redness, No discharge Respiratory: No cough, No sputum, No wheezing, No shortness of breath Cardiac: No chest pain, No orthopnea, No PND, No edema Abdomen: No pain, No nausea, No vomiting, No diarrhea Musculoskeletal: + joint pain, + swelling, No muscle pain, No calf pain Female : No dysuria, No urinary frequency, No hematuria, No incontinence Neurologic: No memory loss, No paralysis, No weakness, No numbness/tingling Psychiatric: No depression symptoms, No anhedonism, No anxiety, No insomnia Heme: No abnormal bleeding/bruising, No clotting problems Skin: No rash, No itch Objective Vital Signs Date Time Temp Pulse Resp B/P (MAP) Pulse Ox O2 Delivery O2 Flow Rate FiO2 02/01/17 07:10 Room Air 02/01/17 07:09 37.1 72 16 120/75 (90) 95 Room Air 01/31/17 23:15 Room Air 01/31/17 23:07 36.9 70 16 123/78 (93) 95 Room Air 01/31/17 15:27 37.0 81 18 129/76 (93) Room Air 01/31/17 15:15 Room Air Physical Exam General Appearance: WD/WN, no apparent distress Eyes: normal inspection, PERRL, EOMI, sclerae normal Neck: supple, no adenopathy, thyroid normal, no JVD Respiratory/Chest: chest non-tender, lungs clear, normal breath sounds, no respiratory distress Cardiovascular: no edema, no gallop, no JVD, no murmur Abdomen: normal bowel sounds, non tender, soft, no organomegaly Extremities: normal range of motion, normal inspection, no pedal edema, no calf tenderness Neurologic/Psychiatric: no motor/sensory deficits, alert, normal mood/affect, oriented x 3 Assessment and Plan This pt is a 56 year old with female with a h/o depression, PTSD, pseudoseizures , migraines, nephrolithiasis, dyslipidemia, OA, and a nonspecific demyelinating disease, who presents with failed outpatient treatment of a left thumb cat bite cellulitis. She has no evidence of sepsis. Cat bite with left thumb cellulitis and most likely suppurative tenosynovitis POD # 2 s/p I&D -Orthopedics managing I&D completed 01/30, await c&s, NGTD -Follow Blood cultures but with no evidence of sepsis I doubt these will prove positive -Continue ceftriaxone, Dapto, and metronidazole IV (tolerated Ancef given @ [facility] prior to transfer) -ID following -Pain control - acetaminophen 650mg Q4HWA, oxycodone 5mg Q4H PRN and morphine 2mg Q2H PRN WILL SIGN OFF AT THIS TIME, thank you for your consultation PTSD/Depression-stable -Continue lamictal, cymbalta, trazodone H/o Pseudoseizures, nonspecific demyelinating disease, migraines-stable, no pseudoseizures in 5 years but triggered by exacerbations of her PTSD -Imitrex prn -follows with Neuro as outpt OA-NSAIDs on hold Dyslipidemia-continue statin VTE Prophylaxis SCDs Full Code
--- NOTE | 2017-02-01 15:00 | Progress Note ---
Subjective Date of Service: Feb 01, 2017. Subjective Pt evaluation today including: conversation w/ patient, conversation w/ family , physical exam, chart review, lab review pt with less pain today, still swelling in thumb. no f/c. tolerating abx. All remaining ros reviewed and are negative. blood and OR cultures negative to date. denies drainage. states no plan for additional OR at this time. Problem List Medical Problems: (1) Depression Status: Chronic (2) Epilepsy Unspec W/O Mention Intractable Epilepsy Status: Chronic (3) Hypothyroidism Nos Status: Chronic (4) Migraine Status: Chronic (5) Posttraumatic Stress Disorder Status: Chronic (6) Urolithiasis Status: Chronic Objective Vital Signs Date Time Temp Pulse Resp B/P (MAP) Pulse Ox O2 Delivery O2 Flow Rate FiO2 02/01/17 07:10 Room Air 02/01/17 07:09 37.1 72 16 120/75 (90) 95 Room Air 01/31/17 23:15 Room Air 01/31/17 23:07 36.9 70 16 123/78 (93) 95 Room Air 01/31/17 15:27 37.0 81 18 129/76 (93) 95 Room Air 01/31/17 15:15 Room Air Physical Exam General Appearance: WD/WN, no apparent distress Eyes: normal inspection, EOMI Neck: supple Respiratory/Chest: lungs clear, normal breath sounds, no respiratory distress Cardiovascular: regular rate, rhythm, no edema Abdomen: soft Extremities: non-tender, no pedal edema Neurologic/Psychiatric: alert, normal mood/affect, oriented x 3 Comments: dressing c/d/i, sensation intact Laboratory Results Item Value Date Time Gram Stain - Final Resulted 01/30/17 1745 Abscess Thumb , Left Blood Culture - Preliminary Resulted 01/29/17 2226 Blood NO GROWTH TO DATE. Blood Culture - Preliminary Resulted 01/29/17 2220 Blood NO GROWTH TO DATE. Gram Stain - Final Resulted 01/30/17 1745 Abscess Thumb , Left Assessment and Plan (1) Tenosynovitis of hand Assessment & Plan: continue IV abx for now, suspect cultures will remain negative, would suggest transition to po clinda 300mg po tid and doxy 100mg po bid x 14 days upon d/c if no additional surgery planned. will need local wound care as well.
[2017-02-01 15:16] VITALS: BP 118/78; PULSE 75; TEMP 36.7; O2SAT 99
[2017-02-01] MEDS: PRAVASTATIN SOD 20 MG TAB PO SCH (21:15)
[2017-02-01] MEDS: BACLOFEN 10 MG TAB PO SCH (21:15)
[2017-02-01] MEDS: TRAZODONE HCL 100 MG TAB PO SCH (21:16)
[2017-02-01] MEDS: CEFTRIAXONE SOD INJ 1 GM in DEXTROSE 5% ADD-VANTAGE 50ML 50 ML IV SCH (21:43)
[2017-02-01 23:17] VITALS: BP 107/67; PULSE 68; TEMP 37; O2SAT 95
[2017-02-02] MEDS: MoRPHine SULFATE 2 MG/ML CARP IV PRN (01:14)
[2017-02-02] MEDS: DAPTOmycin IV 250 MG in SODIUM CHLORIDE 0.9% 50ML 50 ML IV SCH (05:26)
[2017-02-02] MEDS: SODIUM CHLORIDE 0.9% 1000ML 1,000 ML IV SCH ×2 (05:26→15:25)
[2017-02-02] MEDS: LEVOTHYROXINE 75 MCG TAB PO SCH (06:14)
[2017-02-02] MEDS: METRONIDAZOLE / NSS 500 MG in PREMIXED NSS 100 ML IV SCH ×3 (06:14→22:07)
[2017-02-02 07:12] VITALS: BP 131/73; PULSE 72; TEMP 36.6; O2SAT 95
[2017-02-02 07:18] LABS: CREATININE 0.61 mg/dl (0.60-1.20)
[2017-02-02] MEDS: ACETAMINOPHEN 325 MG TAB PO SCH ×4 (07:54→20:18)
[2017-02-02] MEDS: DOCUSATE SODIUM 100 MG CAP PO SCH ×2 (10:05→20:57)
[2017-02-02] MEDS: PANTOprazole SOD 40 MG TAB PO SCH (10:06)
[2017-02-02] MEDS: DULOXETINE HCL 60 MG CAP PO SCH (10:07)
[2017-02-02] MEDS ORDERED: BISACODYL 5 MG TABEC PO ONE (10:45)
[2017-02-02] MEDS ORDERED: SOD PHOSPHATE/SOD BIPHOSPHATE ENEMA 132 ML BTL PR PRN (10:45)
--- NOTE | 2017-02-02 14:24 | Orthopedic Progress Note ---
Orthopedic Progress Note Date of Service Feb 02, 2017. Subjective Post OP Day: 3 Reports: feeling well, pain controlled w PO medications, Denies: complaints, chest pain, SOB, nausea / vomiting, light headedness Objective increased redness surrounding dorsum incision with mild purulent drainage noted , tender tip of thumb, no pain proximal to 1st MCP joint, redness does not extend past the blue marking line. no streaking noted. NVDI, CR<2sec Date Time Temp Pulse Resp B/P (MAP) Pulse Ox O2 Delivery O2 Flow Rate FiO2 02/02/17 07:40 Room Air 02/02/17 07:12 36.6 72 16 131/73 (92) 95 Room Air 02/01/17 23:20 Room Air 02/01/17 23:17 37.0 68 16 107/67 (80) 95 Room Air 02/01/17 15:20 Room Air 02/01/17 15:16 36.7 75 16 118/78 (91) 99 Room Air Assessment & Plan Assessment: POD#3 SP I&D LEFT THUMB Plan: PAIN MANAGEMENT- JOSE, MORPHINE FOLLOW CULTURE RESULTS- CURRENTLY NGTD BUT GRAM STAIN POSITIVE CONTINUE DAPTOMYCIN PENDING FINAL CULTURE RESULTS. 02/02/17- dressing changed, noted to have increased redness from yesterday, will cont with daily dressing changes, IV Abx, will make NPO after MN tonight, discussed if s/s worsen possible repeat I&D. pain well controlled presently, continue Daptomycin. (1) Tenosynovitis of hand
--- NOTE | 2017-02-02 14:42 | Progress Note ---
Subjective Date of Service: Feb 02, 2017. Subjective Pt evaluation today including: conversation w/ patient, conversation w/ family , physical exam, chart review, lab review had worsening pain left thumb today, no f/c. tolerating dapto and rocephin. all cultures negative. underwent dressing change by ortho and noted to have increased erythema. for tentative I&D in am. All remaining ros reviewed and are negative. Problem List Medical Problems: (1) Depression Status: Chronic (2) Epilepsy Unspec W/O Mention Intractable Epilepsy Status: Chronic (3) Hypothyroidism Nos Status: Chronic (4) Migraine Status: Chronic (5) Posttraumatic Stress Disorder Status: Chronic (6) Urolithiasis Status: Chronic Objective Vital Signs Date Time Temp Pulse Resp B/P (MAP) Pulse Ox O2 Delivery O2 Flow Rate FiO2 02/02/17 07:40 Room Air 02/02/17 07:12 36.6 72 16 131/73 (92) 95 Room Air 02/01/17 23:20 Room Air 02/01/17 23:17 37.0 68 16 107/67 (80) 95 Room Air 02/01/17 15:20 Room Air 02/01/17 15:16 36.7 75 16 118/78 (91) 99 Room Air Physical Exam General Appearance: WD/WN, no apparent distress Eyes: normal inspection, EOMI Neck: supple Respiratory/Chest: chest non-tender, lungs clear, normal breath sounds, no respiratory distress Cardiovascular: regular rate, rhythm, no edema Abdomen: soft Extremities: non-tender, no pedal edema Neurologic/Psychiatric: alert, oriented x 3 Skin: normal color, no rash Comments: dressing c/d/i Laboratory Results Item Value Date Time Gram Stain - Final Resulted 01/30/17 1745 Abscess Thumb , Left Blood Culture - Preliminary Resulted 01/29/17 2226 Blood NO GROWTH TO DATE. Blood Culture - Preliminary Resulted 01/29/17 2220 Blood NO GROWTH TO DATE. Last 24 Hours Test 02/02/17 06:26 Creatinine 0.61 mg/dl Est Creatinine Clear Calc Drug Dose 87.9 ml/min Estimated GFR () 116.6 Estimated GFR (Non- 100.6 Assessment and Plan (1) Tenosynovitis of hand Assessment & Plan: continue IV abx for now, for ? OR in am, will follow.
[2017-02-02 15:28] VITALS: BP 116/75; PULSE 80; TEMP 36.8; O2SAT 96
--- NOTE | 2017-02-02 17:10 | Anesthesiology Progress Note ---
Anesthesia Progress Note Date of Service Feb 02, 2017. Progress Notes Ms. Rosario had an I and D of her thumb on 01/30/17, used an LMA#4 without incident. She is scheduled for repeat I and D of her thumb on 02/03/[address] Pan. No significant changes to her health. Advised to be NPO after midnight. Consented for general anesthesia. All questions answered.
[2017-02-02] MEDS: BACLOFEN 10 MG TAB PO SCH ×2 (20:57→21:29)
[2017-02-02] MEDS: TRAZODONE HCL 100 MG TAB PO SCH (20:57)
[2017-02-02] MEDS: PRAVASTATIN SOD 20 MG TAB PO SCH (20:57)
[2017-02-02] MEDS: CEFTRIAXONE SOD INJ 1 GM in DEXTROSE 5% ADD-VANTAGE 50ML 50 ML IV SCH (21:29)
[2017-02-02] MEDS: OXYCODONE HCL IR 5 MG TAB (IMMEDIATE RELEASE) PO PRN (23:59)
[2017-02-03] VITALS (11 sets, daily range): BP systolic 88–136; BP diastolic 48–80; PULSE 57–105; TEMP 36.1–37.1; O2SAT 91–99
[2017-02-03] MEDS: SODIUM CHLORIDE 0.9% 1000ML 1,000 ML IV SCH ×3 (02:21→21:26)
[2017-02-03] MEDS: DAPTOmycin IV 250 MG in SODIUM CHLORIDE 0.9% 50ML 50 ML IV SCH (05:32)
[2017-02-03] MEDS: LEVOTHYROXINE 75 MCG TAB PO SCH (05:35)
[2017-02-03] MEDS: SUMATRIPTAN SUCC TAB 100 MG TAB PO PRN (05:49)
[2017-02-03] MEDS: METRONIDAZOLE / NSS 500 MG in PREMIXED NSS 100 ML IV SCH ×3 (06:07→22:00)
[2017-02-03] MEDS: DOCUSATE SODIUM 100 MG CAP PO SCH ×2 (08:51→20:40)
[2017-02-03] MEDS: ACETAMINOPHEN 325 MG TAB PO SCH ×4 (08:51→20:40)
[2017-02-03] MEDS: DULOXETINE HCL 60 MG CAP PO SCH (08:52)
--- NOTE | 2017-02-03 09:12 | Orthopedic Progress Note ---
Orthopedic Progress Note Date of Service Feb 03, 2017. Subjective Post OP Day: 4 Additional Notes: Patient is having more pain and discomfort today. There was concern yesterday about redness and drainage, she is currently NPO for possible repeat I&D today. Objective N/V intact, capillary refill less than 2 sec., dressing C/D/I, incision C/D/I, A &O x3 Dressing removed. She has scant yellow drainage on the adaptic. No bloody drainage. She has a very small amount of gross purulence at the dorsal side. She continues to have redness and edema which appears to be worse today. Significant tenderness to any light touch or motion. Date Time Temp Pulse Resp B/P (MAP) Pulse Ox O2 Delivery O2 Flow Rate FiO2 02/03/17 08:00 94 Room Air 02/03/17 07:50 Room Air 02/03/17 07:45 36.1 85 16 123/76 (92) 95 Room Air 02/03/17 00:09 36.5 84 18 97/61 (73) 95 Room Air 02/03/17 00:00 Room Air 02/02/17 15:28 36.8 80 17 116/75 (89) 96 Room Air 02/02/17 15:20 Room Air Assessment & Plan Assessment: POD#4 SP I&D LEFT THUMB Plan: PAIN MANAGEMENT- JOSE, MORPHINE FOLLOW CULTURE RESULTS- CURRENTLY NGTD BUT GRAM STAIN POSITIVE CONTINUE DAPTOMYCIN PENDING FINAL CULTURE RESULTS. 02/03/17- PATIENT WITH WORSENING PAIN, REDNESS, SWELLING. SHE IS NPO FOR REPEAT I &D THIS AFTERNOON. CONSENT IS ON THE CHART BUT WILL NEED SIGNED. CONTINUE IV DAPTOMYCIN.
[2017-02-03] MEDS: PANTOprazole SOD 40 MG TAB PO SCH (09:40)
[2017-02-03] MEDS ORDERED: PROPOFOL IV EMULSION 10 MG/ML 20 ML VIAL IV ONE (16:57)
[2017-02-03] MEDS ORDERED: LIDOCAINE HCL 2% 2 ML VIAL (20MG/ML) ONE (16:57)
[2017-02-03] MEDS ORDERED: ONDANSETRON INJ 2 MG/ML 2 ML VIAL ONE (16:57)
[2017-02-03] MEDS ORDERED: DEXAMETHASONE SOD INJ 4 MG/ML VIAL ONE (16:57)
[2017-02-03] MEDS ORDERED: FENTANYL CITRATE INJ 50 MCG/1 ML 2 ML VIAL ONE (16:58)
[2017-02-03] MEDS ORDERED: MIDAZOLAM HCL 1 MG/ML 2ML VIAL ONE (16:58)
[2017-02-03] MEDS ORDERED: BACITRACIN 50000 UNIT VIAL ONE (17:10)
[2017-02-03] MEDS ORDERED: BUPIVACAINE 0.5 % 5 MG/1 ML MPF 30ML VIAL ONE (17:10)
--- NOTE | 2017-02-03 17:37 | History & Physical Bridge Note ---
H&P Re-Evaluation Bridge Note: I have examined the patient, reviewed the History & Physical and in the interval since the performance of the History & Physical I have noted the following changes of clinical significance: Left thumb irrigation and debridement, possible arthrotomy and drainage of the IP joint of the thumb. I discussed with her we may open sutures from the previous incisions and checked for any additional infection. She understands possibility of stiffness loss of function failure to clear the infection etc. She is agreeable and wishes to proceed. No changes noted
[2017-02-03] MEDS ORDERED: PROMETHAZINE HCL INJ 12.5 MG in SODIUM CHLORIDE 0.9% 50ML 50 ML IV PRN (18:30)
[2017-02-03] MEDS ORDERED: ATROPINE SULFATE 0.1 MG/ML 5ML SYR IV PRN (18:30)
[2017-02-03] MEDS ORDERED: KETOROLAC TROMETHAMINE 30 MG/ML VIAL IV. PRN (18:30)
[2017-02-03] MEDS ORDERED: EpHEDrine SULFATE INJ 50 MG/ML AMP IV PRN (18:30)
[2017-02-03] MEDS ORDERED: LABETALOL HCL IV 5 MG/ML 20ML IV PRN (18:30)
[2017-02-03] MEDS ORDERED: FLUMAZENIL 0.1 MG/1 ML 10 ML VIAL IV PRN (18:30)
[2017-02-03] MEDS ORDERED: ONDANSETRON INJ 2 MG/ML 2 ML VIAL IV PRN (18:30)
[2017-02-03] MEDS ORDERED: NALOXONE HCL 0.4 MG/1 ML VIAL/CARP IV PRN (18:30)
[2017-02-03] MEDS ORDERED: HYDROmorphone INJ 1 MG/ML SYR ONE ×2 (18:47→19:04)
[2017-02-03] MEDS: HYDROmorphone INJ 1 MG/ML SYR IV PRN ×7 (18:48→19:23)
--- NOTE | 2017-02-03 18:56 | [facility] Post Operative Brief Note ---
Immediate Operative Summary Operative Date Feb 03, 2017. Pre-Operative Diagnosis Left Thumb Infection Post-Operative Diagnosis Left Thumb septic IP joint of thumb Procedure(s) Performed Arthrotomy and Drainage of IP Joint Left Thumb Surgeon Dr. Rodas Ekg Manager Surgeon(s) None Estimated Blood Loss 0cc per surgeon Findings infection in IP joint, no flexor tendon infection Specimens For Culture: 1. Left Thumb - routine - C+S, Aerobic/Anaerobic 2. Deep Left Thumb - routine, C+S, Aerobic/Anaerobic Drains none Anesthesia general Complication(s) None Disposition Recovery Room / PACU
[2017-02-03] MEDS ORDERED: KETOROLAC TROMETHAMINE 30 MG/ML VIAL ONE (19:23)
--- NOTE | 2017-02-03 19:46 | Anesthesiology Progress Note ---
Anesthesia Post Op Note Date & Time Feb 03, 2017 at 19:46 Vital Signs Pain Intensity: 5 Vital Signs Past 12 Hours Date Time Temp Pulse Resp B/P (MAP) Pulse Ox O2 Delivery O2 Flow Rate FiO2 02/03/17 19:12 36.9 66 18 145/83 100 Nasal Cannula 2 02/03/17 19:04 69 19 02/03/17 19:04 68 19 100 02/03/17 19:01 143/81 02/03/17 18:59 66 17 141/80 02/03/17 18:59 66 17 02/03/17 18:50 70 18 134/81 (98) 100 Mask 10 02/03/17 18:40 66 18 137/82 (65) 100 Mask 10 02/03/17 18:34 36.7 74 18 133/78 (101) 100 Mask 10 02/03/17 15:44 37.1 68 14 128/75 (92) 94 Room Air 02/03/17 15:40 Room Air 02/03/17 11:15 37.1 57 16 128/80 (96) 98 Room Air 02/03/17 08:00 94 Room Air 02/03/17 07:50 Room Air Notes Mental Status: alert / awake / arousable, participated in evaluation Pt Amnestic to Procedure: Yes Nausea / Vomiting: adequately controlled Pain: adequately controlled Airway Patency, RR, SpO2: stable & adequate BP & HR: stable & adequate Hydration State: stable & adequate Anesthetic Complications: no major complications apparent
[2017-02-03] MEDS: TRAZODONE HCL 100 MG TAB PO SCH (20:40)
[2017-02-03] MEDS: BACLOFEN 10 MG TAB PO SCH (20:40)
[2017-02-03] MEDS: PRAVASTATIN SOD 20 MG TAB PO SCH (20:40)
[2017-02-03] MEDS: CEFTRIAXONE SOD INJ 1 GM in DEXTROSE 5% ADD-VANTAGE 50ML 50 ML IV SCH (21:25)
[2017-02-03] MEDS: OXYCODONE HCL IR 5 MG TAB (IMMEDIATE RELEASE) PO PRN (23:32)
--- NOTE | 2017-02-03 23:42 | OPERATIVE REPORT ---
DATE OF OPERATION: 02/03/2017 PREOPERATIVE DIAGNOSIS: Left thumb septic interphalangeal joint. POSTOPERATIVE DIAGNOSIS: Same. PROCEDURE: Left thumb arthrotomy and drainage of septic interphalangeal joint of the thumb. ANESTHESIA: General. OFFENDER EMPLOYMENT SPECIALIST: None. INDICATIONS: This is a female status post irrigation and debridement of septic flexor tenosynovitis and previous I&D of IP joint of the thumb. She presents with persistent pain and swelling of the left thumb at the IP joint. I saw her in the preoperative holding area. We discussed risks, benefits, reasonable outcomes and options of treatment. Examination is consistent with significant irritability of thumb IP joint. She has very minimal, if any, redness and swelling on the volar aspect of the finger as you do not see evidence of septic flexor tenosynovitis. She has negative Kanavel sign. I discussed with her possibilities of repeat irrigation and debridement. The risks and benefits have been discussed including, but not limited to, risk of infection, nerve injury, stiffness, loss of motion, failure to improve, etc. The patient is agreeable and wishes to proceed. DESCRIPTION OF PROCEDURE: I opened the patient's previous dorsal incisions. She has 2 longitudinal incisions over the dorsal aspect of the thumb. Dissection was carried down through the skin and subcutaneous tissues. I made an incision just lateral to the tendon on each side of the finger and the IP joint was entered. There was evidence of gross fluid consistent with infection. I took superficial cultures as well as deep cultures. I performed formal arthrotomy and drainage of the IP joint of the thumb. There was significant amount of synovitis in the thumb and this was debrided. I washed the area with 3 liters of bacitracin-impregnated normal saline. I opened the patient's incision over the A1 ean of the thumb and I did not detect any significant fluid or infection in that area. Incisions were closed with 4-0 nylon. Packing was placed in the dorsal incisions. Soft dressing was applied, injected Marcaine in the local area as digital block for pain control. The patient was sent to the PACU in stable condition. Postoperative plan will be range of motion as tolerated and monitoring of cultures. I attest to the content of the Intraoperative Record and any orders documented therein. Any exception s are noted below.
[2017-02-04] MEDS: OXYCODONE HCL IR 5 MG TAB (IMMEDIATE RELEASE) PO PRN ×3 (01:50→12:03)
[2017-02-04 03:35] VITALS: BP 80/37; PULSE 76; TEMP 36.6; O2SAT 95
[2017-02-04] MEDS: LEVOTHYROXINE 75 MCG TAB PO SCH (05:54)
[2017-02-04] MEDS: DAPTOmycin IV 250 MG in SODIUM CHLORIDE 0.9% 50ML 50 ML IV SCH (05:54)
[2017-02-04] MEDS: METRONIDAZOLE / NSS 500 MG in PREMIXED NSS 100 ML IV SCH ×3 (06:33→22:35)
[2017-02-04 07:00] VITALS: BP 102/54; PULSE 67; TEMP 36.7; O2SAT 95
[2017-02-04 07:48] LABS: CREATININE 0.61 mg/dl (0.60-1.20)
[2017-02-04] MEDS: SODIUM CHLORIDE 0.9% 1000ML 1,000 ML IV SCH ×2 (07:48→18:53)
[2017-02-04] MEDS: ACETAMINOPHEN 325 MG TAB PO SCH ×4 (07:48→19:57)
[2017-02-04] MEDS: DOCUSATE SODIUM 100 MG CAP PO SCH ×2 (09:48→21:00)
[2017-02-04] MEDS: DULOXETINE HCL 60 MG CAP PO SCH (09:49)
[2017-02-04] MEDS: PANTOprazole SOD 40 MG TAB PO SCH (09:50)
[2017-02-04] MEDS: CeleBREX 200 MG CAP PO SCH (09:57)
--- NOTE | 2017-02-04 10:20 | Anesthesiology Progress Note ---
Anesthesia Post Op Note Date & Time Feb 04, 2017 at 10:20 Vital Signs Vital Signs Past 12 Hours Date Time Temp Pulse Resp B/P (MAP) Pulse Ox O2 Delivery O2 Flow Rate FiO2 02/04/17 07:00 36.7 67 16 102/54 (70) 95 Room Air 02/04/17 03:35 36.6 76 16 80/37 (51) 95 Room Air 02/03/17 23:30 Room Air 02/03/17 22:52 36.6 75 16 89/53 (65) 97 Room Air 02/03/17 22:39 95/57 (70) Notes Mental Status: alert / awake / arousable, participated in evaluation Pt Amnestic to Procedure: Yes Nausea / Vomiting: adequately controlled Pain: adequately controlled Airway Patency, RR, SpO2: stable & adequate BP & HR: stable & adequate Hydration State: stable & adequate Anesthetic Complications: no major complications apparent
[2017-02-04 12:15] VITALS: BP 126/82; PULSE 72; TEMP 37; O2SAT 97
--- NOTE | 2017-02-04 12:59 | Orthopedic Progress Note ---
Orthopedic Progress Note Date of Service Feb 04, 2017. Subjective Reports: feeling well Additional Notes: Pain off and on in the left thumb. No other complaints. Objective Dressing removed, packing taken out. No overt purulence noted. Scant serous drainage. Thumb looks much better compared to yesterday. Erythema present but much less swelling. Wound left with temporary dressing --> OT coming to do hydrogen peroxide soaks. Date Time Temp Pulse Resp B/P (MAP) Pulse Ox O2 Delivery O2 Flow Rate FiO2 02/04/17 12:15 37.0 72 16 126/82 (97) 97 Room Air 02/04/17 07:40 Room Air 02/04/17 07:00 36.7 67 16 102/54 (70) 95 Room Air 02/04/17 03:35 36.6 76 16 80/37 (51) 95 Room Air 02/03/17 23:30 Room Air 02/03/17 22:52 36.6 75 16 89/53 (65) 97 Room Air 02/03/17 22:39 95/57 (70) 02/03/17 22:14 36.6 85 12 88/48 (61) 95 Room Air 02/03/17 21:23 36.9 88 15 108/68 (81) 95 Room Air 02/03/17 20:46 36.8 105 14 119/79 (92) 91 Room Air 02/03/17 20:15 36.8 77 16 136/76 (96) 99 Nasal Cannula 2.0 02/03/17 20:15 99 Nasal Cannula 2.0 02/03/17 20:15 99 Nasal Cannula 2.0 02/03/17 20:01 138/84 02/03/17 20:00 78 17 02/03/17 20:00 77 17 99 02/03/17 19:56 137/79 02/03/17 19:55 73 14 02/03/17 19:55 75 14 100 02/03/17 19:51 131/92 02/03/17 19:50 70 22 02/03/17 19:50 69 22 100 02/03/17 19:46 136/83 02/03/17 19:45 72 12 02/03/17 19:45 73 12 100 02/03/17 19:41 138/82 02/03/17 19:40 69 9 02/03/17 19:40 68 9 100 02/03/17 19:36 134/84 02/03/17 19:35 66 14 100 02/03/17 19:35 66 14 02/03/17 19:31 138/85 02/03/17 19:30 70 14 100 02/03/17 19:30 69 14 02/03/17 19:26 136/85 02/03/17 19:25 70 16 100 02/03/17 19:25 71 16 02/03/17 19:21 145/84 02/03/17 19:20 67 10 02/03/17 19:20 66 10 100 02/03/17 19:16 145/83 02/03/17 19:15 68 14 02/03/17 19:15 67 14 100 02/03/17 19:12 36.9 66 18 145/83 100 Nasal Cannula 2 02/03/17 19:11 144/84 02/03/17 19:10 67 9 02/03/17 19:10 66 9 100 02/03/17 19:06 144/84 02/03/17 19:05 70 12 02/03/17 19:05 70 12 100 02/03/17 19:04 69 19 02/03/17 19:04 68 19 100 02/03/17 19:01 143/81 02/03/17 18:59 66 17 141/80 02/03/17 18:59 66 17 02/03/17 18:50 70 18 134/81 (98) 100 Mask 10 02/03/17 18:40 66 18 137/82 (65) 100 Mask 10 02/03/17 18:34 36.7 74 18 133/78 (101) 100 Mask 10 02/03/17 15:44 37.1 68 14 128/75 (92) 94 Room Air 02/03/17 15:40 Room Air Assessment & Plan Assessment: POD 1 s/p 2nd I&D Left Thumb infection due to cat bite. Plan: Daily dressing changes and hydrogen peroxide soaks while in hospital Follow Cx Antibx as per Med/ID team Inhouse Planning Pain Management: Morphine, PO Tylenol, Oxy IR
[2017-02-04] MEDS ORDERED: MoRPHine SULFATE 2 MG/ML CARP IV PRN (13:00)
[2017-02-04] MEDS: KETOROLAC TROMETHAMINE 15 MG/ML VIAL IV. SCH ×2 (14:08→19:56)
[2017-02-04] MEDS: MoRPHine SULFATE 4 MG/ML 1 ML CARP\\VIAL IV PRN (14:09)
--- NOTE | 2017-02-04 15:09 | Progress Note ---
Subjective Date of Service: Feb 04, 2017. Subjective Pt evaluation today including: conversation w/ patient, conversation w/ family , physical exam, chart review, lab review s/p I&D yesterday, feeling much better today. denies pain, increased ROM, had dressing change this am, no plans for more OR per patient. No f/c. eating lunch on my exam. tolerating abx. no new labs. all cultures negative to date. cultures obtained in OR yesterday, gram stain negative. All remaining ros reviewed and are negative. Problem List Medical Problems: (1) Depression Status: Chronic (2) Epilepsy Unspec W/O Mention Intractable Epilepsy Status: Chronic (3) Hypothyroidism Nos Status: Chronic (4) Migraine Status: Chronic (5) Posttraumatic Stress Disorder Status: Chronic (6) Urolithiasis Status: Chronic Objective Vital Signs Date Time Temp Pulse Resp B/P (MAP) Pulse Ox O2 Delivery O2 Flow Rate FiO2 02/04/17 12:15 37.0 72 16 126/82 (97) 97 Room Air 02/04/17 07:40 Room Air 02/04/17 07:00 36.7 67 16 102/54 (70) 95 Room Air 02/04/17 03:35 36.6 76 16 80/37 (51) 95 Room Air 02/03/17 23:30 Room Air 02/03/17 22:52 36.6 75 16 89/53 (65) 97 Room Air 02/03/17 22:39 95/57 (70) 02/03/17 22:14 36.6 85 12 88/48 (61) 95 Room Air 02/03/17 21:23 36.9 88 15 108/68 (81) 95 Room Air 02/03/17 20:46 36.8 105 14 119/79 (92) 91 Room Air 02/03/17 20:15 36.8 77 16 136/76 (96) 99 Nasal Cannula 2.0 02/03/17 20:15 99 Nasal Cannula 2.0 02/03/17 20:15 99 Nasal Cannula 2.0 02/03/17 20:01 138/84 02/03/17 20:00 78 17 02/03/17 20:00 77 17 99 02/03/17 19:56 137/79 02/03/17 19:55 73 14 02/03/17 19:55 75 14 100 02/03/17 19:51 131/92 02/03/17 19:50 70 22 02/03/17 19:50 69 22 100 02/03/17 19:46 136/83 02/03/17 19:45 72 12 02/03/17 19:45 73 12 100 02/03/17 19:41 138/82 02/03/17 19:40 69 9 02/03/17 19:40 68 9 100 02/03/17 19:36 134/84 02/03/17 19:35 66 14 100 02/03/17 19:35 66 14 02/03/17 19:31 138/85 02/03/17 19:30 70 14 100 02/03/17 19:30 69 14 02/03/17 19:26 136/85 02/03/17 19:25 70 16 100 02/03/17 19:25 71 16 02/03/17 19:21 145/84 02/03/17 19:20 67 10 02/03/17 19:20 66 10 100 02/03/17 19:16 145/83 02/03/17 19:15 68 14 02/03/17 19:15 67 14 100 02/03/17 19:12 36.9 66 18 145/83 100 Nasal Cannula 2 02/03/17 19:11 144/84 02/03/17 19:10 67 9 02/03/17 19:10 66 9 100 02/03/17 19:06 144/84 02/03/17 19:05 70 12 02/03/17 19:05 70 12 100 02/03/17 19:04 69 19 02/03/17 19:04 68 19 100 02/03/17 19:01 143/81 02/03/17 18:59 66 17 141/80 02/03/17 18:59 66 17 02/03/17 18:50 70 18 134/81 (98) 100 Mask 10 02/03/17 18:40 66 18 137/82 (65) 100 Mask 10 02/03/17 18:34 36.7 74 18 133/78 (101) 100 Mask 10 02/03/17 15:44 37.1 68 14 128/75 (92) 94 Room Air 02/03/17 15:40 Room Air Physical Exam General Appearance: WD/WN, no apparent distress Eyes: normal inspection, EOMI Neck: supple Respiratory/Chest: lungs clear, normal breath sounds, no respiratory distress Cardiovascular: regular rate, rhythm, no edema Abdomen: non tender, soft Extremities: non-tender, no pedal edema Neurologic/Psychiatric: alert, oriented x 3 Comments: dressing c/d/i, movement improved, no pain, sensation intact. no bleeding/ drainage Laboratory Results Item Value Date Time Gram Stain - Final Resulted 01/30/17 1745 Abscess Thumb , Left Blood Culture - Preliminary Resulted 01/29/17 2226 Blood NO GROWTH TO DATE. Blood Culture - Preliminary Resulted 01/29/17 2220 Blood NO GROWTH TO DATE. Gram Stain - Final Resulted 01/30/17 1745 Abscess Thumb , Left Gram Stain - Final Resulted 02/03/17 1810 Abscess Thumb , Left Gram Stain - Final Resulted 02/03/17 1807 Abscess Thumb , Left Gram Stain - Final Resulted 01/30/17 1745 Abscess Thumb , Left Blood Culture - Final Complete 01/29/17 2226 Blood NO GROWTH Blood Culture - Final Complete 01/29/17 2220 Blood NO GROWTH Gram Stain - Final Complete 01/30/17 1745 Abscess Thumb , Left Last 24 Hours Test 02/04/17 06:49 Creatinine 0.61 mg/dl Est Creatinine Clear Calc Drug Dose 87.9 ml/min Estimated GFR () 116.6 Estimated GFR (Non- 100.6 Assessment and Plan (1) Tenosynovitis of hand Assessment & Plan: continue IV for now, follow culture. if negative and pt otherwise stable for d/c would suggest doxy 100mg po bid with food and clinda 300mg po tid x 14 days
[2017-02-04 15:54] VITALS: BP 127/80; PULSE 70; TEMP 36.9; O2SAT 98
[2017-02-04] MEDS: BACLOFEN 10 MG TAB PO SCH (21:07)
[2017-02-04] MEDS: PRAVASTATIN SOD 20 MG TAB PO SCH (21:08)
[2017-02-04] MEDS: TRAZODONE HCL 100 MG TAB PO SCH (21:08)
[2017-02-04] MEDS: CEFTRIAXONE SOD INJ 1 GM in DEXTROSE 5% ADD-VANTAGE 50ML 50 ML IV SCH (21:44)
[2017-02-04 23:00] VITALS: BP 120/75; PULSE 67; TEMP 36.8; O2SAT 97
[2017-02-05] MEDS: KETOROLAC TROMETHAMINE 15 MG/ML VIAL IV. SCH ×4 (02:08→20:45)
[2017-02-05] MEDS: SODIUM CHLORIDE 0.9% 1000ML 1,000 ML IV SCH ×3 (04:01→23:24)
[2017-02-05] MEDS: DAPTOmycin IV 250 MG in SODIUM CHLORIDE 0.9% 50ML 50 ML IV SCH (05:28)
[2017-02-05] MEDS: LEVOTHYROXINE 75 MCG TAB PO SCH (06:23)
[2017-02-05] MEDS: METRONIDAZOLE / NSS 500 MG in PREMIXED NSS 100 ML IV SCH ×3 (06:23→22:10)
[2017-02-05 07:06] VITALS: BP 131/79; PULSE 70; TEMP 36.7; O2SAT 96
[2017-02-05] MEDS: DOCUSATE SODIUM 100 MG CAP PO SCH ×2 (08:40→20:48)
[2017-02-05] MEDS: PANTOprazole SOD 40 MG TAB PO SCH (08:41)
[2017-02-05] MEDS: DULOXETINE HCL 60 MG CAP PO SCH (08:41)
[2017-02-05] MEDS: CeleBREX 200 MG CAP PO SCH (08:41)
[2017-02-05] MEDS: ACETAMINOPHEN 325 MG TAB PO SCH ×4 (08:42→20:45)
--- NOTE | 2017-02-05 09:29 | Orthopedic Progress Note ---
Orthopedic Progress Note Date of Service Feb 05, 2017. Subjective Post OP Day: 2 (2nd I&D) Reports: feeling well Objective N/V intact, incision C/D/I Moderate swelling, no real tenderness thenar eminence, minimal drainage Date Time Temp Pulse Resp B/P (MAP) Pulse Ox O2 Delivery O2 Flow Rate FiO2 02/05/17 07:06 36.7 70 16 131/79 (96) 96 Room Air 02/04/17 23:25 Room Air 02/04/17 23:00 36.8 67 16 120/75 (90) 97 Room Air 02/04/17 16:10 Room Air 02/04/17 15:54 36.9 70 16 127/80 (96) 98 Room Air 02/04/17 12:15 37.0 72 16 126/82 (97) 97 Room Air Assessment & Plan Assessment: POD 2 s/p 2nd I&D Left Thumb infection due to cat bite. Plan: Daily dressing changes and hydrogen peroxide soaks while in hospital Follow Cx Antibx as per Med/ID team Inhouse Planning Pain Management: Morphine, PO Tylenol, Oxy IR
[2017-02-05 15:33] VITALS: BP 128/80; PULSE 70; TEMP 36.7; O2SAT 97
[2017-02-05] MEDS: MoRPHine SULFATE 4 MG/ML 1 ML CARP\\VIAL IV PRN (18:29)
[2017-02-05] MEDS: TRAZODONE HCL 100 MG TAB PO SCH (20:47)
[2017-02-05] MEDS: PRAVASTATIN SOD 20 MG TAB PO SCH (20:48)
[2017-02-05] MEDS: BACLOFEN 10 MG TAB PO SCH (20:49)
[2017-02-05] MEDS: CEFTRIAXONE SOD INJ 1 GM in DEXTROSE 5% ADD-VANTAGE 50ML 50 ML IV SCH (21:37)
[2017-02-05 22:44] VITALS: BP 93/58; PULSE 86; TEMP 36.7; O2SAT 95
[2017-02-06] MEDS: KETOROLAC TROMETHAMINE 15 MG/ML VIAL IV. SCH ×4 (01:52→19:31)
[2017-02-06] MEDS: LEVOTHYROXINE 75 MCG TAB PO SCH (05:32)
[2017-02-06] MEDS: DAPTOmycin IV 250 MG in SODIUM CHLORIDE 0.9% 50ML 50 ML IV SCH (05:36)
[2017-02-06] MEDS: METRONIDAZOLE / NSS 500 MG in PREMIXED NSS 100 ML IV SCH ×4 (06:13→21:43)
[2017-02-06 06:37] LABS: CREATININE 0.54 mg/dl (0.60-1.20)
[2017-02-06 07:02] VITALS: BP 119/73; PULSE 87; TEMP 37; O2SAT 96
[2017-02-06] MEDS: ACETAMINOPHEN 325 MG TAB PO SCH ×4 (09:13→19:31)
[2017-02-06] MEDS: CeleBREX 200 MG CAP PO SCH (09:14)
[2017-02-06] MEDS: DULOXETINE HCL 60 MG CAP PO SCH (09:14)
[2017-02-06] MEDS: DOCUSATE SODIUM 100 MG CAP PO SCH ×2 (09:14→20:32)
[2017-02-06] MEDS: SODIUM CHLORIDE 0.9% 1000ML 1,000 ML IV SCH ×2 (09:17→19:31)
--- NOTE | 2017-02-06 09:28 | Orthopedic Progress Note ---
Orthopedic Progress Note Date of Service Feb 06, 2017. Subjective Post OP Day: 3 (2nd I&D) Reports: feeling well Objective incision C/D/I (Dressing changed, mild erythema and swelling, pt's thumb still fairly sensitive ) Date Time Temp Pulse Resp B/P (MAP) Pulse Ox O2 Delivery O2 Flow Rate FiO2 02/06/17 07:02 37.0 87 17 119/73 (88) 96 Room Air 02/05/17 23:30 Room Air 02/05/17 22:44 36.7 86 16 93/58 (70) 95 Room Air 02/05/17 15:33 36.7 70 17 128/80 (96) 97 Room Air 02/05/17 15:15 Room Air Assessment & Plan Assessment: POD 3 s/p 2nd I&D Left Thumb infection due to cat bite. Plan: Daily dressing changes and hydrogen peroxide soaks while in hospital Follow Cx Antibx as per Med/ID team Probable d/c tomorrow on oral abx Inhouse Planning Pain Management: Morphine, PO Tylenol, Oxy IR
[2017-02-06] MEDS: OXYCODONE HCL IR 5 MG TAB (IMMEDIATE RELEASE) PO PRN (10:49)
[2017-02-06] MEDS: PANTOprazole SOD 40 MG TAB PO SCH (12:07)
[2017-02-06] MEDS: SUMATRIPTAN SUCC TAB 100 MG TAB PO PRN ×2 (12:07→14:29)
[2017-02-06 14:56] VITALS: BP 132/82; PULSE 63; TEMP 36.9; O2SAT 97
[2017-02-06] MEDS: BACLOFEN 10 MG TAB PO SCH (20:31)
[2017-02-06] MEDS: PRAVASTATIN SOD 20 MG TAB PO SCH (20:31)
[2017-02-06] MEDS: TRAZODONE HCL 100 MG TAB PO SCH (20:31)
[2017-02-06] MEDS: CEFTRIAXONE SOD INJ 1 GM in DEXTROSE 5% ADD-VANTAGE 50ML 50 ML IV SCH (20:32)
[2017-02-06 22:44] VITALS: BP 106/70; PULSE 79; TEMP 36.6; O2SAT 95
[2017-02-07] MEDS: KETOROLAC TROMETHAMINE 15 MG/ML VIAL IV. SCH ×2 (01:01→08:00)
[2017-02-07] MEDS: SODIUM CHLORIDE 0.9% 1000ML 1,000 ML IV SCH (05:43)
[2017-02-07] MEDS: METRONIDAZOLE / NSS 500 MG in PREMIXED NSS 100 ML IV SCH (05:43)
[2017-02-07] MEDS: LEVOTHYROXINE 75 MCG TAB PO SCH (05:46)
[2017-02-07 06:59] VITALS: BP 110/69; PULSE 77; TEMP 37; O2SAT 94
[2017-02-07] MEDS: DAPTOmycin IV 250 MG in SODIUM CHLORIDE 0.9% 50ML 50 ML IV SCH (07:08)
--- NOTE | 2017-02-07 08:51 | Orthopedic Progress Note ---
Orthopedic Progress Note Date of Service Feb 07, 2017. Subjective Post OP Day: 4 Reports: feeling well, Denies: chest pain, SOB, nausea / vomiting, light headedness, calf pain Objective calves soft nontender, N/V intact, dressing C/D/I, incision C/D/I, A&O x3, toes mobile MARKED IMPROVEMENT IN SWELLING, ERYTHEMA. NO DRAINAGE. Date Time Temp Pulse Resp B/P (MAP) Pulse Ox O2 Delivery O2 Flow Rate FiO2 02/07/17 06:59 37.0 77 16 110/69 (83) 94 Room Air 02/06/17 23:15 Room Air 02/06/17 22:44 36.6 79 16 106/70 (82) 95 Room Air 02/06/17 15:40 Room Air 02/06/17 14:56 36.9 63 17 132/82 (99) 97 Room Air 02/06/17 09:25 Room Air Assessment & Plan Assessment: POD 4 s/p 2nd I&D Left Thumb infection due to cat bite. Plan: Daily dressing changes and hydrogen peroxide soaks while in hospital Follow Cx- NGTD Antibx as per Med/ID team Probable d/c TODAY ON DOXY 100MG BID AND CLINDA 300MG TID X [address] LOBO RECOMMENDATIONS[address] Inhouse Planning Pain Management: Morphine, PO Tylenol, Oxy IR
--- NOTE | 2017-02-07 08:54 | Discharge Instructions ---
Discharge Instructions Date of Service Feb 07, 2017. Admission Reason for Admission: Lt Thumb Laceration, Infection Discharge Discharge Diagnosis / Problem: I&D LEFT THUMB, CAT BITE Discharge Goals Goal(s): Decrease discomfort, Improve function, Increase independence Activity Recommendations Activity Limitations: per Instructions/Follow-up section Lifting Limitations: none Exercise/Sports Limitations: none May Resume Sexual Activity: when tolerated Shower/Bathe: no limitations, keep incision dry Driving or Machine Use: no limitations . Instructions / Follow-Up Instructions / Follow-Up [facility] DISCHARGE INSTRUCTIONS: HIP FRACTURE SELF CARE INSTRUCTIONS: MAINTAIN DAILY DRESSING CHANGES AT HOME. PLEASE CALL IF ANY CHANGES- REDNESS, DRAINAGE, SWELLING, PAIN. F. You may shower 48 hours after surgery, but DO NOT soak or submerge incision area in water. (No baths, swimming pools, hot tubs) KEEP DRESSING DRY H. Do NOT apply soap or any ointment/lotions directly over incision. I. You may use ice as needed to operative site. SPECIAL CARE INSTRUCTIONS: VERY IMPORTANT TO READ AND REVIEW B. There are a few signs you need to watch for after you are home. Call [facility] at [phone] if you experience any of the following: a. If you have a temperature of 101 degrees or higher. b. Sudden increase in pain in your hip not relieved by rest or pain medication. c. Any fluid or drainage from the incision; redness of the incision. d. Shortness of breath or chest pain. B. Please call [facility] at [phone] if you have any questions or concerns about your operation or recovery. C. Call your physician if: a. Temperature is greater than 101 degrees (F). b. Pain is not relieved by prescribed pain medications. c. Increase drainage or redness from incision. d. Unanswered questions or concerns. D. Pain Medication: a. You will be prescribed pain medication upon discharge that should last till your first post-operative appointment. b. If you experience nausea and/or skin rash, discontinue this medication and contact our office for an alternative medication. c. Caution- narcotic pain medication can cause constipation. FOLLOW UP VISIT: Please call [facility] at [phone] to schedule a follow up appointment 10-14 days from the date of your surgery date. DR. ROESHOT Current Hospital Diet Patient's current hospital diet: Regular Diet Discharge Diet Recommended Diet: Regular Diet Procedures Procedures Performed: Arthrotomy and Drainage of IP Joint Left Thumb Pending Studies Studies pending at discharge: no Medical Emergencies . Who to Call and When: Medical Emergencies: If at any time you feel your situation is an emergency, please call 911 immediately. . Non-Emergent Contact Non-Emergency issues call your: Surgeon . "Provider Documentation" section prepared by Dorota Pemberton. . VTE Core Measure Inpt VTE Proph given/why not?: Treatment not indicated [place] Drug Monitoring Program Search Results: patient reviewed within database, no issues identified
[2017-02-07] MEDS ORDERED: CLIN300C2 PO (08:56)
[2017-02-07] MEDS ORDERED: DOXY1TAB6 PO (08:56)
[2017-02-07] MEDS ORDERED: RXC5 PO (08:56)
[2017-02-07] MEDS: DOCUSATE SODIUM 100 MG CAP PO SCH (09:27)
[2017-02-07] MEDS: PANTOprazole SOD 40 MG TAB PO SCH (09:27)
[2017-02-07] MEDS: CeleBREX 200 MG CAP PO SCH (09:28)
[2017-02-07] MEDS: DULOXETINE HCL 60 MG CAP PO SCH (09:28)
[2017-02-07] MEDS: ACETAMINOPHEN 325 MG TAB PO SCH (09:28)
[2017-02-07 11:06] VITALS: BP 110/69; PULSE 77; TEMP 37; O2SAT 94
== END 2017-02-07 12:01 | disposition home or self-care (01) | DRG 506 ==
LOC: C.MSN 20:01 → UNDOADMIN 20:01
PROVIDERS: ADMIT Orthopaedic Surgery Sports Medicine; ATTEND Orthopaedic Surgery Sports Medicine
PROC: 0R9X0ZZ Drainage of Left Finger Phalangeal Joint, Open Approach (ICD-10-PCS; principal; 2017-01-30 07:56)
PROC: 0L980ZZ Drainage of Left Hand Tendon, Open Approach (ICD-10-PCS; principal; 2017-01-30 07:56)
PROC: 0J9K0ZX Drainage of Left Hand Subcutaneous Tissue and Fascia, Open Approach, Diagnostic (ICD-10-PCS; principal; 2017-01-30 07:56)
PROC: 0R9X0ZZ Drainage of Left Finger Phalangeal Joint, Open Approach (ICD-10-PCS; 2017-02-03)
DX: M00.842 Arthritis due to other bacteria, left hand (principal); L02.512 Cutaneous abscess of left hand; M65.142 Other infective (teno)synovitis, left hand; W55.01XA Bitten by cat, initial encounter; F32.9 Major depressive disorder, single episode, unspecified; F43.10 Post-traumatic stress disorder, unspecified; G40.909 Epilepsy, unspecified, not intractable, without status epilepticus; E78.00 Pure hypercholesterolemia, unspecified; M19.90 Unspecified osteoarthritis, unspecified site; E03.9 Hypothyroidism, unspecified; Z79.899 Other long term (current) drug therapy; Z88.0 Allergy status to penicillin

== ENCOUNTER → 2017-08-11 | Outpatient (CLI) | payer BC ==
[~2017-08-11] MED LIST changes: +GADAVIST IV PRN; +LAMO200T35 PO; -LAMO200T38 PO; +RXC5 PO
--- NOTE | 2017-08-11 15:02 | DIAGNOSTIC IMAGING REPORT ---
BRAIN COMBO FOR MS CLINICAL HISTORY: 57 years-old Female presenting with DEMYELINATING DISORDER, hemifacial spasms, memory loss, headache, dizziness, seizure. TECHNIQUE: Multisequence, multiplanar MR imaging of the brain was performed before and after the administration of intravenous contrast. IV contrast: 5.5 mL of Gadavist. COMPARISON: 04/02/2014. FINDINGS: Ventricles and sulci normal in size. Numerous foci of FLAIR hyperintensity scattered throughout the centrum semiovale and subcortical white matter. These are grossly unchanged in number, size, and distribution. These do not demonstrate restricted diffusion or enhancement. No mass effect or midline shift. No restricted diffusion to suggest acute ischemia. No hemorrhage. No extra-axial fluid collection. T2 skull base flow voids preserved. No abnormal parenchymal enhancement. Bone marrow signal intensity within the calvarium within normal limits. Peripherally T2 hyperintense mucosal thickening in the left maxillary sinus. Aerated secretions noted within the left maxillary sinus. IMPRESSION: 1. Numerous foci of FLAIR hyperintensity scattered throughout the white matter without evidence of enhancement or restricted diffusion. These are essentially stable from prior and are nonspecific. This could be compatible with the myelinating disease in the proper clinical setting. No evidence of active demyelination. 2. Findings suggest acute left maxillary sinusitis. Electronically signed by: Alireza Lewis M.D. 08/11/2017 3:01 PM Dictated Date/Time: 08/11/2017 2:52 PM
== END | disposition home or self-care (01) ==
LOC: C.MRIBC 11:42
PROVIDERS: ATTEND Psychiatry & Neurology Neurology
DX: G37.9 Demyelinating disease of central nervous system, unspecified (principal)